=== PATIENT | female | born 1945 | race Caucasian/White ===

== ENCOUNTER → 2023-08-16 11:51 | Outpatient (REF) | payer MEDICARE, OTHER, SELFPAY | LOC: HWRAD 11:51 | PROVIDERS: ATTENDING PHYSICIAN Internal Medicine Rheumatology; FAMILY PHYSICIAN Family Medicine | DX: M81.0 Age-related osteoporosis without current pathological fracture (principal) | CPT/HCPCS: 77080 ==

== ENCOUNTER → 2023-08-23 12:45 | Outpatient (REF) | payer MEDICARE, OTHER, SELFPAY | LOC: HWWDC 12:45 | PROVIDERS: ATTENDING PHYSICIAN Internal Medicine; FAMILY PHYSICIAN Family Medicine; REFERRING PHYSICIAN Obstetrics & Gynecology | DX: Z12.31 Encounter for screening mammogram for malignant neoplasm of breast (principal) | CPT/HCPCS: 77063; 77067 ==

== ENCOUNTER → 2024-02-09 12:20 | Outpatient (REF) | payer MEDICARE, OTHER, SELFPAY | LOC: HWRCS 12:20 | PROVIDERS: ATTENDING PHYSICIAN Nurse Practitioner; FAMILY PHYSICIAN Family Medicine | DX: I25.10 Atherosclerotic heart disease of native coronary artery without angina pectoris (principal); I10 Essential (primary) hypertension; R53.83 Other fatigue | CPT/HCPCS: 93306 ==

== ENCOUNTER → 2024-02-16 11:18 | Outpatient (REF) | payer MEDICARE, OTHER, SELFPAY | LOC: DHCBC/DCA 11:18 | PROVIDERS: ATTENDING PHYSICIAN Nurse Practitioner; FAMILY PHYSICIAN Family Medicine | DX: I25.10 Atherosclerotic heart disease of native coronary artery without angina pectoris (principal); I10 Essential (primary) hypertension; R53.83 Other fatigue | CPT/HCPCS: 78452; 93017; A9500 ==

== ENCOUNTER → 2024-03-23 09:44 | Outpatient (REF) | payer MEDICARE, OTHER, SELFPAY | LOC: RCS 09:44 | PROVIDERS: ATTENDING PHYSICIAN Family Medicine | DX: R00.2 Palpitations (principal) | CPT/HCPCS: 93225; 93226 ==

== ENCOUNTER 2024-09-16 20:23 | Inpatient (IN) | payer MEDICARE, OTHER, SELFPAY ==
[2024-09-16] VITALS (15 sets, daily range): BP systolic 98–163; BP diastolic 68–120; BMI 28.3; BMI 28.5
--- NOTE | 2024-09-16 18:30 | ED.GENMED ---
History of Present Illness
<IGNACIO Tamayo - Last Filed: 09/16/24 20:32>
General
Chief Complaint: Cardiac Symptoms
Source: patient
Exam Limitations: none
Time Seen by Provider: 09/16/24 18:18
Nursing documentation reviewed up to this point in time: agreed with
History of Present Illness
History of Present Illness:
Patient is a 79-year-old female past medical history of A-fib on Eliquis , CAD with stent ,acne rosacea, hypertension hyperlipidemia presents to the ER. She has not felt well for the past several weeks. She has not had increasing shortness of
breath and lower extremity swelling. She reports normally walks 2 and half miles every day but can barely walk yesterday and did not walk today. She went to her PCPs office and was sent here for elevated heart rate. She was recently started on
metoprolol September 03 when she saw her PCP and did take 25 mg this morning. She has never had congestive heart failure lower extremity swelling up until recently. She is on HCTZ and only takes it once a week as her instructions.
Review of Systems
<IGNACIO Tamayo - Last Filed: 09/16/24 20:32>
Review of Systems
Allergies reviewed?: Yes
All Other Systems: ROS reviewed and negative except as documented in HPI and ROS
Constitutional: Reports no symptoms; Denies fever, fatigue or chills
EENT: Reports no symptoms
Respiratory: Reports trouble breathing; Denies cough
Cardiac: Denies chest pain, palpitations or syncope
ABD/GI: Reports no symptoms
: Reports no symptoms
Musculoskeletal: Reports other (Lower extremity swelling)
Hematologic/Lymphatic: Reports no symptoms
Phy Exam
<IGNACIO Tamayo - Last Filed: 09/16/24 20:32>
General Physical Exam
General Presentation: no apparent distress
General age: appears stated age
General Skin: warm and dry
General Habitus: normal
General Mental: alert
General Hydration: appears well hydrated
Cardiovascular Exam
Cardiovascular Exam: irregularly irregular
Pulmonary Exam
Pulmonary Exam: other (crackles at bases b/l )
Neurological Exam
Neurological Exam: alert and oriented x3
Musculoskeletal Exam
Musculoskeletal Exam: other (+ pitting edema to b/l l/e )
Skin Exam
Skin Exam: normal color and warm/dry
Psychiatric Exam
Psychiatric Exam: normal mood/affect
Course
<IGNACIO Tamayo - Last Filed: 09/16/24 20:32>
Orders/Labs/Results
Orders:
Orders
09/16/24 18:02
Electrocardiogram (*1) Urgent
Reason for Study: Palpitations
09/16/24 18:03
EKG- Treatment ONCE
09/16/24 18:37
Diltiazem 125 mg/125 ml Nss [Cardizem] 125 mg in 125 ml IV NOW
Initial dose in mg/hr, then titrate:: 5
Titrate to keep:: Heart rate 80-100 bpm
Titrate by mg/hr:: 5 mg/hr
Frequency of titrations (minutes):: 15
Maximum dose in mg/hr:: 15
Diltiazem HCl [Cardizem] 10 mg IV NOW STA
09/16/24 18:38
Cardiac Monitoring- Treatment ONCE
IV Insert/Care/Rem.- Treatment PRN
Portable Chest Xray [CR Chest Portable - 1 View] Urgent
Comment:
Reason For Exam: sob
Reason Study Needs to be Portable: Patient Unstable
09/16/24 18:40
Furosemide [Lasix] 40 mg IV NOW STA
09/16/24 18:45
Complete Blood Count/With Diff Urgent
Comprehensive Metabolic Panel Urgent
Pro-BNP [NT-proBNP] Urgent
Troponin I Urgent
09/16/24 19:10
Metoprolol [Lopressor] 5 mg IV NOW STA
09/16/24 20:13
Admit/Transfer Patient As Directed
Co-Sign Provider:
Level of Care: Inpatient admission
Assign to:: Telemetry
Physician / Group: germania
Diagnosis: new onset CHF
Reason for Telemetry: Arrhythmia
Date to Stop Telemetry: 09/19/24
Time to Stop Telemetry: 11:00
Reason for Hospitalization: new onset CHF
atrial fib with RVR
Expected length of stay greater than two midnights?: Yes
ELOS- Estimated Length of Stay in days: 3
I certify the patient meets the requirements for IP care: Yes
Code Status As Directed
Resuscitation Status: Do not resuscitate
Reached after discussion with pt or family/Healthcare POA: Yes
PRN Pain Medication Management As Directed
May give lesser potent ordered pain med per pt: Yes
preference::
Protocol:: Medication orders for pain may be administered in a
manner that supports deferring to patient preference
when the pt is:
- Requesting an ordered lesser potent pain medication.
Least to most potent pain medications are defined
as: acetaminophen < NSAID < tramadol < opioids
(morphine, oxycodone, hydromorphone).
- Requesting a lesser dose of the same medication IF
ORDERED.
- Requesting a less intrusive route of administration
if both routes are prescribed by the provider (PO <
IV).
09/16/24 20:14
DNR Bracelet Application ONCE
09/19/24 11:00
DC Protocol for Telemetry ONCE
Abnormal Lab Results
09/16/24
18:45
RBC 3.91 L 10^6/uL
(4.20-5.40)
Hct 35.0 L %
(37.0-47.0)
MPV 10.6 H fL
(7.4-10.4)
Absolute Lymphs (auto) 1.0 L 10^3/uL
(1.2-3.4)
Absolute Monos (auto) 0.7 H 10^3/uL
(0.1-0.6)
Neutrophils % 75.6 H %
(42.2-75.2)
Lymphocytes % 13.7 L %
(20.5-51.1)
Sodium 134 L mmol/L
(135-145)
BUN 18 H mg/dl
(7-17)
Glucose 102 H mg/dl
(70-99)
AST 44 H U/L
(14-36)
ALT 42 H U/L
(0-35)
09/16/24 18:45
09/16/24 18:45
Vital Signs
Initial and Last Documented VS:
Initial Vital Signs
Temp Pulse Resp BP Pulse Ox
97.7 F 165 20 163/109 100
09/16/24 18:10 09/16/24 18:10 09/16/24 18:10 09/16/24 18:10 09/16/24 18:10
Last Documented Vital Signs
Temp Pulse Resp BP Pulse Ox
97.7 F 110 17 104/70 98
09/16/24 18:10 09/16/24 20:00 09/16/24 20:00 09/16/24 20:00 09/16/24 20:00
Hat Steamer consulted with Physician
Hat Steamer consulted with physician?: Yes
Name of Physician Consulted: DR Dyer
<Charanjit Dyer, DO - Last Filed: 09/16/24 19:12>
Orders/Labs/Results
Orders:
Orders
09/16/24 18:02
Electrocardiogram (*1) Urgent
Reason for Study: Palpitations
09/16/24 18:03
EKG- Treatment ONCE
09/16/24 18:37
Diltiazem 125 mg/125 ml Nss [Cardizem] 125 mg in 125 ml IV NOW
Initial dose in mg/hr, then titrate:: 5
Titrate to keep:: Heart rate 80-100 bpm
Titrate by mg/hr:: 5 mg/hr
Frequency of titrations (minutes):: 15
Maximum dose in mg/hr:: 15
Diltiazem HCl [Cardizem] 10 mg IV NOW STA
09/16/24 18:38
Cardiac Monitoring- Treatment ONCE
IV Insert/Care/Rem.- Treatment PRN
Portable Chest Xray [CR Chest Portable - 1 View] Urgent
Comment:
Reason For Exam: sob
Reason Study Needs to be Portable: Patient Unstable
09/16/24 18:40
Furosemide [Lasix] 40 mg IV NOW STA
09/16/24 18:45
Complete Blood Count/With Diff Urgent
Comprehensive Metabolic Panel Urgent
Pro-BNP [NT-proBNP] Urgent
Troponin I Urgent
09/16/24 19:10
Metoprolol [Lopressor] 5 mg IV NOW STA
09/16/24 20:13
Admit/Transfer Patient As Directed
Co-Sign Provider:
Level of Care: Inpatient admission
Assign to:: Telemetry
Physician / Group: germania
Diagnosis: new onset CHF
Reason for Telemetry: Arrhythmia
Date to Stop Telemetry: 09/19/24
Time to Stop Telemetry: 11:00
Reason for Hospitalization: new onset CHF
atrial fib with RVR
Expected length of stay greater than two midnights?: Yes
ELOS- Estimated Length of Stay in days: 3
I certify the patient meets the requirements for IP care: Yes
Code Status As Directed
Resuscitation Status: Do not resuscitate
Reached after discussion with pt or family/Healthcare POA: Yes
PRN Pain Medication Management As Directed
May give lesser potent ordered pain med per pt: Yes
preference::
Protocol:: Medication orders for pain may be administered in a
manner that supports deferring to patient preference
when the pt is:
- Requesting an ordered lesser potent pain medication.
Least to most potent pain medications are defined
as: acetaminophen < NSAID < tramadol < opioids
(morphine, oxycodone, hydromorphone).
- Requesting a lesser dose of the same medication IF
ORDERED.
- Requesting a less intrusive route of administration
if both routes are prescribed by the provider (PO <
IV).
09/16/24 20:14
DNR Bracelet Application ONCE
09/19/24 11:00
DC Protocol for Telemetry ONCE
Abnormal Lab Results
09/16/24
18:45
RBC 3.91 L 10^6/uL
(4.20-5.40)
Hct 35.0 L %
(37.0-47.0)
MPV 10.6 H fL
(7.4-10.4)
Absolute Lymphs (auto) 1.0 L 10^3/uL
(1.2-3.4)
Absolute Monos (auto) 0.7 H 10^3/uL
(0.1-0.6)
Neutrophils % 75.6 H %
(42.2-75.2)
Lymphocytes % 13.7 L %
(20.5-51.1)
Sodium 134 L mmol/L
(135-145)
BUN 18 H mg/dl
(7-17)
Glucose 102 H mg/dl
(70-99)
AST 44 H U/L
(14-36)
ALT 42 H U/L
(0-35)
09/16/24 18:45
09/16/24 18:45
Vital Signs
Initial and Last Documented VS:
Initial Vital Signs
Temp Pulse Resp BP Pulse Ox
97.7 F 165 20 163/109 100
09/16/24 18:10 09/16/24 18:10 09/16/24 18:10 09/16/24 18:10 09/16/24 18:10
Last Documented Vital Signs
Temp Pulse Resp BP Pulse Ox
97.7 F 110 17 104/70 98
09/16/24 18:10 09/16/24 20:00 09/16/24 20:00 09/16/24 20:00 09/16/24 20:00
<IGNACIO Tamayo - Last Filed: 09/16/24 20:32>
MDM/Problems Addressed
Differential Diagnosis Includes:
not limited to:rapid atrial fibrillation, congestive heart failure
MDM/Problems Addressed:
As documented patient is a 79-year-old female with history of A-fib on Eliquis has not missed a dose complains of increasing shortness of breath over the past several weeks associated lower extremity swelling. She presented in rapid A-fib. She had
no chest pain with this. She has obvious pitting edema to bilateral lower extremities crackles bilateral bases however she is not hypoxic. Case discussed ED physician. Patient was started on a Cardizem drip portable chest and labs ordered.
1904: Nurse notified me that patient developed a red rash to bilateral legs and feels a warm sensation in the legs. This reaction occurred after starting Cardizem. She denies any new shortness of breath with this. She has no other areas of
redness.
CArdizem stopped. Dr Manisha armenta pt at beside.
Patient was given 5 mg of metoprolol and heart rate has decreased into the high 90s. Blood pressure running low around 104/70. Patient is in no acute distress she is well-appearing.. She did receive Lasix.
Case discussed with cardiology will admit patient to cardiology will see patient in consult tomorrow.
Labs reviewed she has normal white count and afebrile hemoglobin stable at 12.0. She has normal electrolytes normal renal function. Chest x-ray showed likely small left and tiny right pleural effusions.
Pt admitted to the hospitalist service.
<IGNACIO Tamayo - Last Filed: 09/16/24 20:32>
*Radiology
Radiology exam reviewed: radiology read reviewed
*Pulse Oximetry
Patient hypoxic: no
*EKG
Interpreted by ED Provider?: Yes
Heart Rate: 156
Rate: tachycardiac
Rhythm: a-fib
Ischemia: no ischemia
*Critical Care Note
Total Time (30-74mins, 75-104mins- exclusive of procedures): Not Applicable
<IGNACIO Tamayo - Last Filed: 09/16/24 20:32>
Patient Management
Discussion with other providers: Combustion Analyst (DR Deleon cardiology )
ED Attending Note
<IGNACIO Tamayo - Last Filed: 09/16/24 20:32>
-
Portions of this chart may have been created with voice recognition software.� Occasional wrong word or��sound alike� substitutions may have occurred due to the inherent limitations of voice recognition software.
<Charanjit Dyer DO - Last Filed: 09/16/24 19:12>
ED Attending Note
Patient seen and examined by attending physician: Yes
I performed the substantive portion of visit, reviewed & personally made and approve the management plan that is documented in note by myself or MORALES.: Yes
ED Attending Note:
I evaluated the patient at bedside. The patient was started on Cardizem drip as her rates are in the 150s. Shortly after the drip was started, she developed a rash to the lower extremities which was not present earlier. Will stop Cardizem and
switch to beta-nemesio. She is known to Dr. Menard. I personally reviewed chest x-ray which shows left greater than right pleural effusions.
Discharge Plan
Departure
Patient Disposition: Admit
Date of Disposition: 09/16/24
Time of Disposition: 19:40
Admit to: Telemetry
Admit to doctor: hospitalist
Presentation/result/management discussed w/ accepting MD/DO: Hospitalist
Patient with high blood pressure during this ER visit?: Yes
Condition: Fair
Covid-19: Not Applicable
Discharge Problem:
Atrial fibrillation, rapid, Congestive heart failure (CHF)
Interventions
Interventions:
*Risk Screen - Suicide Last Done: 09/16/24 18:10
*General Assessment Last Done: 09/16/24 18:10
*Neglect/Abuse Screening Last Done: 09/16/24 18:46
*ED- Fall Risk Assessment Last Done: 09/16/24 18:47
*ED COVID-19 Vaccine History Last Done: 09/16/24 18:51
ED- Pulmonary Assessment Last Done: 09/16/24 18:50
ED- Cardiac Assessment Last Done: 09/16/24 18:46
[2024-09-16] MEDS: CARDIZEM 125 IV (18:40)
[2024-09-16] MEDS: CARDIZEM 10 MG IV (18:40)
[2024-09-16 18:53] LABS: % Basophils 0.8 % (0-2); % Eosinophils 0.7 % (0-6); % Immature Granulocytes 0.1 % (0-0.5); % Lymphocytes 13.7 % (20.5-51.1); % Monocytes 9.1 % (1.7-9.3); % Neutrophils 75.6 % (42.2-75.2); Absolute Basophils 0.1 10^3/uL (0-0.2); Absolute Eosinophils 0.1 10^3/uL (0-0.7); Absolute Monocytes 0.7 10^3/uL (0.1-0.6); Absolute Neutrophils 5.6 10^3/uL (1.4-6.5); Mean Corp Hgb Conc. 34.3 g/dL (33.0-37.0); Mean Corpuscular Hgb 30.7 pg (27.0-31.0); Mean Corpuscular Volume 89.5 fL (81.0-99.0); Mean Platelet Volume 10.6 fL (7.4-10.4); Nucleated Red Blood Cells % 0 %; Platelet Count 241 10^3/uL (130-400); Red Blood Cell Count 3.91 10^6/uL (4.20-5.40); Red Cell Dist. Width 12.9 % (11.5-14.5); White Blood Cell Count 7.4 10^3/uL (4.8-10.8)
[2024-09-16 19:06] LABS: ALT (SGPT) 42 U/L (0-35); AST (SGOT) 44 U/L (14-36); Albumin 3.9 g/dl (3.5-5.0); Alkaline Phosphatase 63 U/L (38-126); Blood Urea Nitrogen 18 mg/dl (7-17); Calcium 9.1 mg/dl (8.4-10.2); Carbon Dioxide 26 mmol/L (22-30); Chloride 101 mmol/L (98-107); Estimated Creatinine Clearance 41 ml/min; Glucose 102 mg/dl (70-99); Potassium 4.3 mmol/L (3.5-5.1); Sodium 134 mmol/L (135-145); Total Bilirubin 0.7 mg/dl (0.2-1.3); Total Protein 6.3 g/dl (6.3-8.2); eGFR > 60.00
[2024-09-16 19:17] LABS: NT-proBNP 2180 pg/ml; Troponin I < 0.012 ng/ml
[2024-09-16] MEDS: LOPRESSOR 5 MG IV (19:21)
--- NOTE | 2024-09-16 19:51 | HPS.HSE ---
Addendum entered and electronically signed by Gerson Alcantar DO 09/16/24 20:40:
Patient seen and examined independently. Agree with findings and plan as set forth by IGNACIO Burton.
Patient is a 79y F with PMH significant for A-Fib, ASCVD and rosacea who presents to ED complaining of LE swelling and SOB over the past two weeks. Symptoms have been steadily progressive during that time. Patient notes that she was started on
metoprolol about 2 weeks ago by her PCP. She has experienced palpitations - mostly when lying flat. No chest pain. Not lightheaded / dizzy. Patient reports that she has gained about 10 lbs in the past month. No prior history of CHF.
Ass:
Paroxysmal Atrial Fibrillation with Rapid Ventricular Response
Acute HFpEF
Benign Hypertension
ASCVD
Rosacea
Plan:
Admit for further evaluation and treatment.
Patient developed rash to the lower extremities after diltiazem gtt started - change to Lopressor IV q6.
Monitor for rate control and adjust dose as needed.
Cardiology evaluation for additional recommendations.
Continue usual Eliquis for stroke risk reduction.
Follow for clinical improvement.
Original Note:
Family Physician
-
Family Physician: Alley Sampson
Chief Complaint
-
sob
LE edema
History of Present Illness
79-year-old female past medical history of A-fib on Eliquis , CAD with stent ,acne rosacea, hypertension hyperlipidemia presents to the ER with sob, LE edema. she noticed swelling of Bilateral LE on two weeks ago. it progressively got worse. she
started having sob which is worse with exertion on Monday. denied orthopnea. denied fever, chills, congestion and cough. her PCP added metoprolol two weeks ago. she gained total of 10lbs in one month. denied GARNICA, dizzy or syncope. denied chest
pain. denied abdominal pain,n,v,d. denied dysuria or hematuria. she was evaluated by PCP and noted in atrial fib with RVR. her heart rate was on 160-180s.
upon arrival she was noted in atrial fib with RVR, received a dose Lopressor. her Her HR in 100-110. she was started on Cardizem but developed rash bilateral LE. patient received a dose of Lasix in ER. admitting for further management.
Medical History
Past Medical History
Past Medical History: Reports Other
Additional Past Medical History:
CAD
allergic rhinitis
PAC
paroxysmal atria lfib
osteoporosis
HLD
Past Surgical History: Reports Other
Additional Past Surgical History:
tooth extraction
right knee replacement
bilateral tubal ligation
cataract surgery
squamous cell removal
Social History
Tobacco: Non-smoker
Alcohol: None
Drug: None
Personal: Single
Living: Alone
Family History
Family History: Not pertinent
Allergies / Home Medications
Allergies reflects when Allergies were last updated in [facility].
Home Medications with original date entered in [facility]
Allergy/Medication List:
Allergies
Allergy/AdvReac Type Severity Reaction Status Date / Time
amoxicillin Allergy Unknown Verified 09/16/24 18:41
Penicillins Allergy Unknown Verified 09/16/24 18:41
Review of Systems
-
Constitutional: Reports No Symptoms
EENT: Reports No Symptoms
Respiratory: Reports Trouble Breathing
Cardiac: Reports No Symptoms
Abdomen/GI: Reports No Symptoms
: Reports No Symptoms
Musculoskeletal: Reports Edema (LE edema)
Skin: Reports No Symptoms
Neurological: Reports No Symptoms
Endocrine: Reports No Symptoms
Hematologic/Lymphatic: Reports No Symptoms
Psych: Reports No Symptoms
Physical Exam
Vital Signs
Vital Signs
Temp Pulse Resp BP Pulse Ox
97.7 F 99 18 113/68 98
09/16/24 18:10 09/16/24 19:30 09/16/24 19:30 09/16/24 19:21 09/16/24 19:30
Physical Exam
General: Well Developed, Well Nourished and No Apparent Distress
HEENT: NormoCephalic, Moist mucous membranes and Atraumatic
Respiratory: Crackles
Cardiac: S1/S2 and Regular Rhythm; No Murmur or Rub
GI: Soft, Non Tender, Non Distended and Normal Bowel Sounds; No Organomegaly
Rectal: Deferred by Provider
Musculoskeletal: No Clubbing, No Cyanosis and Other (b/l LE edema)
Skin: No Rash
Neuro: AO x 3 and Nonfocal/grossly intact
Psych: Calm
Laboratory Results
-
09/16/24 18:45
09/16/24 18:45
Laboratory Results
Total Bilirubin 0.7 mg/dl (0.2-1.3) 09/16/24 18:45
AST 44 U/L (14-36) H 09/16/24 18:45
ALT 42 U/L (0-35) H 09/16/24 18:45
Alkaline Phosphatase 63 U/L (38-126) 09/16/24 18:45
Troponin I < 0.012 ng/ml 09/16/24 18:45
Data Reviewed
-
Diagnostic Radiology: Report Reviewed by me
Lab Data: Labs Reviewed by me
Impression/Plan
-
#sob/LE edema likely CHF
-BNP 2180
-chest x ray with Likely small left and tiny right pleural effusion with some bibasilar opacification suggesting subsegmental atelectasis and/or pneumonia.
-ECHO 02/09/2024 with impression of EF 60-65%
-iv Lasix continued
-strict I &O
-daily weight, fluid restriction
-cardiology consulted
#atrial fib with RVR
-Lopressor in ER
-EKg with atrial fib with RVR
-Lopressor IV continued
-eliquis continued
#hxt of Rosacea
-doxy continued
-flagyl cream continued
#hepatic congestion
-ast 44,alt 42
-denied abdominal pain
#CAD with cardiac stents
#HLD
-statin continued
#DVT prophylaxis
-Eliquis
#CODE status
-DNR
[2024-09-16] MEDS: LASIX 40 MG IV (21:05)
--- NOTE | 2024-09-16 23:45 | PTCARENOTE ---
Received patient from ED via stretcher. Patient ambulated from stretcher to bed independently. Oriented patient to room and placed call [facility] within reach.
[2024-09-17] VITALS (8 sets, daily range): BP systolic 119–152; BP diastolic 49–89; BMI 28.5; BMI 28.0; BMI 27.0
[2024-09-17] MEDS: LIPITOR 20 MG PO ×2 (00:03→22:09)
[2024-09-17] MEDS: ZETIA 10 MG PO ×2 (00:03→22:09)
[2024-09-17] MEDS: LOPRESSOR 5 MG IV ×2 (00:04→05:10)
[2024-09-17] MEDS: ELIQUIS 5 MG PO ×3 (00:24→19:55)
[2024-09-17 06:50] LABS: Hematocrit 32.6 % (37.0-47.0); Hemoglobin 11.2 g/dL (12.0-16.0); Mean Corp Hgb Conc. 34.4 g/dL (33.0-37.0); Mean Corpuscular Hgb 30.9 pg (27.0-31.0); Mean Corpuscular Volume 89.8 fL (81.0-99.0); Mean Platelet Volume 11.1 fL (7.4-10.4); Platelet Count 215 10^3/uL (130-400); Red Blood Cell Count 3.63 10^6/uL (4.20-5.40)
[2024-09-17 07:13] LABS: ALT (SGPT) 36 U/L (0-35); AST (SGOT) 36 U/L (14-36); Albumin 3.4 g/dl (3.5-5.0); Alkaline Phosphatase 55 U/L (38-126); Blood Urea Nitrogen 14 mg/dl (7-17); Calcium 8.6 mg/dl (8.4-10.2); Carbon Dioxide 25 mmol/L (22-30); Chloride 104 mmol/L (98-107); Direct Bilirubin 0.2 mg/dl (0.0-0.4); Estimated Creatinine Clearance 42 ml/min; Glucose 87 mg/dl (70-99); HDL Cholesterol 66 mg/dl; LDL Cholesterol, Calculated 26 mg/dl; Potassium 3.7 mmol/L (3.5-5.1); Sodium 138 mmol/L (135-145); Total Bilirubin 0.7 mg/dl (0.2-1.3); Total Cholesterol 105 mg/dl (50-199); Total Protein 5.5 g/dl (6.3-8.2); Triglyceride 68 mg/dl (10-149); Very Low Density Lipoprotein 13 mg/dl (0-30); eGFR > 60.00
[2024-09-17 07:40] LABS: TSH Reflex To Free T4 0.49 uIU/ml (0.47-4.68)
--- NOTE | 2024-09-17 07:44 | CON.CAR ---
Addendum entered and electronically signed by Doug Deleon MD 09/17/24 11:07:
I saw and examined the patient.
The RESIDENT CARE DIRECTOR's note was reviewed and I agree with the note.
Comment: 79 yo with known PAF now with AFib of uncertain duration. Perhaps her first persistent episode. Hard to know if new heart failure precipitated AF with RVR or if the AFib precipitate her heart failure.
AFib: I discussed all treatment options. She would like to proceed to early cardioversion w/o AAD and then proceed to early ablation in the near future.
Heart failure: Control of AFib will help her HF. Still needs diuresis, likely several days. Once in sinus can update echo. Will add GDMT during the hospital stay and provide education.
Original Note:
Consultation
Consultation Request
Date/Time Consultation Requested: 09/16/2024 23:00
Date/Time Consultation Performed: 09/17/2024 07:45
Requesting Provider: IGNACIO Burton
Performing Provider: IGNACIO Ortiz for Dr. Deleon
Reason for Consultation: Atrial fibrillation with RVR
Medical History
-
Chief Complaint: Shortness of breath
History of Present Illness:
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
presented to the emergency department chief complaint of shortness of breath. Approximately 2 weeks ago she started having swelling of her bilateral lower extremities. It progressively got worse. She developed GILLIAM approximately 2 days prior to
arrival. She denies orthopnea and PND. She believes she has gained approximately 10 pounds. She presented in atrial fibrillation with rapid ventricular response with heart rates 150-170 bpm. Her PCP started metoprolol succinate 2 weeks ago. She
was started on a diltiazem drip and developed a rash to her bilateral lower extremities. She was admitted with atrial fibrillation with rapid ventricular response and acute HFpEF. Cardiology was consulted for heart failure and rhythm management.
Past Medical History
Past Medical History: Arrhythmias (Paroxysmal atrial fibrillation [on apixaban], pSVT), CAD (BMS to LAD [2010]), HTN, Hypercholesterolemia and Other (Vasovagal syncope)
Past Surgical History: Orthopedic
Social History
Tobacco: Non-Smoker
Alcohol: None
Drug: None
Personal:
Employment: Retired
Family History
Family History: Sudden (Father in 50s, no autopsy.)
Allergies / Home Medications
Allergy/AdvReac Type Severity Reaction Status Date / Time
amoxicillin Allergy Unknown Verified 09/16/24 18:41
diltiazem [From Cardizem] Allergy Hives Verified 09/16/24 23:28
Penicillins Allergy Unknown Verified 09/16/24 18:41
�Medication �Instructions �Recorded �Confirmed �Type
acetaminophen 650 mg 1,300 mg PO DAILY 09/16/24 09/16/24 History
tablet,extended release (Tylenol
Arthritis Pain)
acetaminophen 650 mg 650 mg PO HS 09/16/24 09/16/24 History
tablet,extended release (Tylenol
Arthritis Pain)
apixaban 5 mg tablet (Eliquis) 5 mg PO BID 09/16/24 09/16/24 History
biotin 5 mg tablet 5 mg PO DAILY 09/16/24 09/16/24 History
calcium 500 mg (as 1 tab PO DAILY 09/16/24 09/16/24 History
carbonate)-vitamin D3 10 mcg (400
unit) tablet (Calcium 500 + D)
chlorzoxazone 500 mg tablet 500 mg PO DAILY 09/16/24 09/16/24 History
cyanocobalamin (vitamin B-12) 1,000 mcg PO DAILY 09/16/24 09/16/24 History
1,000 mcg tablet
denosumab 60 mg/mL subcutaneous 60 mg SC [id number] 09/16/24 09/16/24 History
syringe (Prolia)
doxycycline hyclate 20 mg tablet 20 mg PO Q48H 09/16/24 09/16/24 History
ezetimibe 10 mg tablet 10 mg PO HS 09/16/24 09/16/24 History
hydrochlorothiazide 12.5 mg tablet 12.5 mg PO WE 09/16/24 09/16/24 History
ketoconazole 2 % shampoo 1 applic topical Q48H 09/16/24 09/16/24 History
metoprolol succinate 25 mg 25 mg PO DAILY 09/16/24 09/16/24 History
tablet,extended release 24 hr
metronidazole 0.75 % topical cream 1 applic topical BID face 09/16/24 09/16/24 History
peg 400-propylene glycol (PF) 0.4 1 drp BOTH EYES HS 09/16/24 09/16/24 History
%-0.3 % eye drops in a dropperette
(Systane (PF))
psyllium husk 0.4 gram capsule 2 g PO QPM 09/16/24 09/16/24 History
(Metamucil)
red yeast rice 600 mg capsule 600 mg PO HS 09/16/24 09/16/24 History
simvastatin 40 mg tablet 40 mg PO HS 09/16/24 09/16/24 History
Review of Systems
-
History Source: Patient
All other systems: Negative unless noted
Constitutional: Weight Gain and Fatigue
EENT: No Symptoms
Respiratory: Trouble Breathing
Cardiac: No Symptoms
Abdomen/GI: No Symptoms
: No Symptoms
Musculoskeletal: Edema
Skin: No Symptoms
Neurological: Weakness
Endocrine: No Symptoms
Hematologic/Lymphatic: No Symptoms
Physical Exam
Vital Signs
Temp Pulse Resp BP Pulse Ox
98.9 F 98 20 134/95 98
09/17/24 03:04 09/17/24 05:45 09/17/24 03:04 09/17/24 05:10 09/17/24 03:04
Lab Results
09/17/24 05:55
09/17/24 05:55
Troponin I < 0.012 ng/ml 09/16/24 18:45
Wal-D-Nawyvblopto Pept 2180 pg/ml 09/16/24 18:45
Physical Exam
General: Well Developed, Well Nourished, No Apparent Distress and Comfortable
HEENT: Normocephalic, Anicteric and Moist Mucous Membranes
Respiratory: Clear and Non Labored Respirations
Cardiac: S1/S2 and Irregular Rhythm
Breast: Deferred by me
GI: Soft, Non Tender, Non Distended and Normal Bowel Sounds
Rectal: Deferred by Provider
Genito-urinary: No Costovertebral Tender
Musculoskeletal: No Clubbing, No Cyanosis and Edema (+2 pitting B/L LE)
Skin: Warm and Dry
Neuro: AO x 3
Hematologic/Lymphatic: No Lymphadenopathy
Psych: Calm
Impression / Plan
-
I/P: 79M with coronary artery disease (BMS to LAD, 2010), paroxysmal atrial fibrillation (on apixaban), PSVT, hypertension, dyslipidemia, and vasovagal syncope who presented to the emergency department chief complaint of shortness of breath -> AF
with RVR & acute HFpEF
Outpatient lumber salvager: Dr. Menard
Heart failure, presumed HFpEF - acute (NEW DIAGNOSIS)
-Diuresis with furosemide 40 mg IV twice daily, this requires intensive monitoring
-She was on HCTZ for chronic lower extremity edema once a week, now stopped, she will now be on furosemide likely MWF as an outpatient
-She normally weighs 113-115 pounds on her home scale
-Case management to [facility] SGLT2
-Daily weight, I/O, and BMP with diuresis
-Heart failure education
-Echocardiogram this admission
Paroxysmal atrial fibrillation now with rapid ventricular response
-Rates elevated, increase metoprolol
-Consider antiarrhythmic therapy, she is not sure she would like a 3 night stay for [facility]
-Oral Anticoagulation: Apixaban 5 mg twice daily, she denies missed doses and abnormal bleeding
-[id number]: Score at least 6 (Heart failure, HTN, age 75 or more, Vascular disease, female gender)
Coronary artery disease
-BMS to LAD in 2010, on apixaban for atrial fibrillation
-Stable without chest pain
Hypertension, follow with diuresis
PSVT, continue beta-nemesio
Hypercholesterolemia, continue simvastatin and Zetia, LDL well below goal
Data Reviewed
-
EKG: Report Reviewed by me (Atrial fibrillation with RVR, rate 156)
Radiology: Report Reviewed by me (CXR: Likely small left and tiny right pleural effusion with some bibasilar opacification suggesting subsegmental atelectasis and/or pneumonia.)
[2024-09-17] MEDS: METHOCARBAMOL 500 MG PO (08:00)
[2024-09-17] MEDS: OSCAL 500 + D 500 MG PO (08:00)
[2024-09-17] MEDS: VITAMIN B-12 1000 MCG PO (08:00)
[2024-09-17] MEDS: LASIX 40 MG IV ×2 (08:01→16:19)
[2024-09-17] MEDS: TOPROL XL 25 MG PO ×2 (08:09→19:59)
--- NOTE | 2024-09-17 09:09 | W.PN.HOSP.TC ---
Today's Communication/Plan
-
IV Lasix. Beta-blockers. Cardioversion. Cardiology eval
Assessment / Plan
Assessment / Plan
Physical exam:
General: Well Developed, Well Nourished and No Apparent Distress
HEENT: Normocephalic, Atraumatic and Moist Mucous Membranes
Respiratory: Few crackles in the bases; Negative Wheezes or Rhonchi
Cardiac: Irregular rate and rhythm, tachycardic, and S1/S2. JVD+
GI: Soft, Nontender and Nondistended
Musculoskeletal: No Clubbing, No Cyanosis. Bilateral lower extremity edema 3+
Neuro: Awake, Alert and Oriented, no neurological deficit
Psych: Calm
A/P:
Paroxysmal atrial fibrillation:
Electrical cardioversion today
Cardiac monitoring
Will need ablation in the near future
Appreciated cardiology consult
Acute diastolic congestive heart failure:
Continue IV diuresis, Lasix 40 mg twice a day
GDMT will be reevaluated down the road--> start beta-blockers of Toprol-XL.
Monitor ins and outs and daily weight
Plan for echo
CAD:
Continue Eliquis and Zetia and statin
Rosacea:
Continue metronidazole cream and oral Doxy
Hypertension:
Beta-blockers
Hyperlipidemia:
Statin
Elevated LFTs:
Due to passive venous congestion
DVT prophylaxis:
Eliquis
CODE STATUS:
DNR
Total time spent on today's encounter was 52 minutes which included time spent in counseling the patient/family regarding diagnosis and treatment plan as listed above, goals of care, and symptom management. Case was discussed with nursing staff,
specialists, and care coordinators/case management. All labs and imaging personally reviewed by me. Remainder the time spent in detailed review of previous records, lab data, imaging, and other medical provider documentation.
Anticipated Discharge: > 48 hours
Subjective/Interval History
-
Date of Service: September 17, 2024
Patient still with some shortness of breath and lower extremity edema. No chest pain.
Objective Data
-
Labs:
Laboratory Results
09/17/24
05:55
WBC 5.0
Hgb 11.2 L
Hct 32.6 L
Plt Count 215
Sodium 138
Potassium 3.7
Chloride 104
Carbon Dioxide 25
BUN 14
Creatinine 0.7
Glucose 87
Calcium 8.6
Total Bilirubin 0.7
AST 36
ALT 36 H
Alkaline Phosphatase 55
Vital Signs:
Vital Signs
Temp Pulse Resp BP Pulse Ox
98.1 F 160 20 120/84 100
09/17/24 07:43 09/17/24 08:01 09/17/24 07:43 09/17/24 08:01 09/17/24 07:43
I&O
09/16/24 09/17/24 09/18/24
06:59 06:59 06:59
Intake Total 240 / 240
Output Total 1000 / 1000
Balance -760 / -760
--- NOTE | 2024-09-17 10:39 | CM ---
Addendum entered by Rakel Mancia 09/17/24 15:28:
IA completed.
Patient recently (July)
Patient lives alone in a 2 story home with 1st floor living.
1 step to enter.
Patient has a rolling walker, but does not use.
Patient drives and drove to the hospital.
Patient is not current with VN an has not been in a skilled facility.
Open to [facility] if needed.
Per patient Eliquis is very expensive for her and costs over $400 for a 90 day supply.
PCP; dr Sampson
Pharmacy: [facility] [place]
Plan: home with no needs anticipated.
Addendum entered by Rakel Mancia 09/17/24 15:24:
Spoke with [facility] mail-in pharmacy (90 day supply) [phone]
Jardiance 10 mg will be $338.76 for a 90 day supply and Farxiga $322.77 for a 90 anatoliy supply.
Patient has $1115 of $2000 yearly OOP left to spend, then covered at 100%.
Original Note:
TC to insurance patient stated prescription coverage was thru- HOP- no rx coverage.
TC to [facility] pharmacy, spoke with tech, patient has medicare part D
Farxiga 10 mg po 1 x per day for 30 days $115.85 per month
Jardiance 10 mg po 1x per day for 30 days $121.59 per month
Per pharmacy these are estimates.
--- NOTE | 2024-09-17 11:33 | ITS.CL.CARDI ---
[facility] - Cardioversion
Cardioversion
Procedure Report:
Date of Procedure: September 17 2024
Procedure: Cardioversion
Indication: Symptomatic atrial fibrillation
Performing Physician: Farhan Rivera DO. [facility]
Technique: The patient was brought to the holding area. Signed informed consent was obtained. A time out was called and performed. The patient was anesthetized by the anesthesia service. Anticoagulation status was reviewed and appropriate. R2 pads
were placed anteriorly and posteriorly. A 200 J synchronized biphasic shock was performed which failed to restore sinus rhythm. Subsequently a 300 J synchronized biphasic shock was performed which failed to restore sinus rhythm. She then had 360 J
synchronized biphasic shock which was successful in converting to normal sinus rhythm without significant bradycardia. There were no complications.
Conclusion: Uncomplicated cardioversion from atrial fibrillation to sinus rhythm.
Recommendation: Routine post cardioversion care. Continue senior living anticoagulation. Discussed with primary cardiology team.
--- NOTE | 2024-09-17 17:21 | W.CARD.TIKOS ---
Initiate Tikosyn
-
I verify that the patient has not taken any verapamil (Isoptin/Calan), ketoconazole (Nizoral), cimetidine (Tagamet), trimethoprim (Trimpex), trimethoprim/sulfamethoxazole (Bactrim), megesterol (Megace), prochlorperazine (Compazine),
hydrochlorothiazide (HCTZ), dolutegravir (Tivicay) or any Class I or Class III anti-arrhythmic within the last three days
AND
I verify that the patient has not taken amiodarone within the last THREE months, or that the patient's amiodarone plasma concentration is <0.3 mcg/mL.
Creatinine 0.7 mg/dL (0.6-1.0) 09/17/24 05:55
Estimated Creat Clear 42 ml/min 09/17/24 05:55
I have assessed the baseline QTc interval (using QT for heart rate less than 60 bpm) and deemed the patient is appropriate for Dofetilide therapy. I understand that Tikosyn is contraindicated if the QTc is >440msec (500msec in patients with
ventricular conduction abnormalities).
Baseline QTc (in msec): 420
Ordering Physician: Doug Deleon
--- NOTE | 2024-09-17 17:22 | W.PN.UPDATE ---
Update Note
Progress Note Update
Patient is back in atrial fibrillation.
We discussed rhythm management. She is agreeable to dofetilide loading this hospitalization.
Will transfer to IVU and start dofetilide this evening.
--- NOTE | 2024-09-17 18:09 | PTCARENOTE ---
Received patient this am AAOX3. Pt HRRI and sustaining in 130-[address] Deleon made aware. Cardiology RADIO ADJUSTER saw patient. Pt given Toprol PO as ordered. Report given to cardiac radiographer cardiac catheterization. Pt went for a cardioversion. 12:50 Pt returned to unit.
AAOx3. Pt in NSR on Tele. VSS. Pt then started to go in an out of A fib an NSR. Pt off unit this evening for Echo. Received order for patient to be transferred to IVU for a Tikosyn Load. Report called an patient transferred to IVU.
--- NOTE | 2024-09-17 18:57 | PTCARENOTE ---
~0947-2021: Received patient transferred from needing tikosyn load. Pt Aox4, Afib on tele rate 90s-110s, satting high 90s on RA. Weight optained at transfer. Patient denies pain at this time. Patient oriented to room and call ventura system. All
needs met at this time, call ventura within reach.
[2024-09-17] MEDS: TIKOSYN 250 MCG PO (19:59)
--- NOTE | 2024-09-17 21:29 | PTCARENOTE ---
Patient received at change of shift resting in the bed. Offers no complaints at this time. Afib on telemetry. Oxygen saturation 97-98%. First dose of Tikosyn given. Discussed with patient purpose of Tikosyn and reasoning for ECG two hours post
administration. Discussed fluid restriction. Plan of care discussed. Call ventura within reach. Care ongoing.
[2024-09-17] MEDS: REFRESH EYE DROPS (PF) 1 DROPS BOTH EYES (22:09)
[2024-09-18] VITALS (8 sets, daily range): BP systolic 105–151; BP diastolic 53–77; BMI 26.5
[2024-09-18 04:27] LABS: Hematocrit 33.9 % (37.0-47.0); Hemoglobin 11.3 g/dL (12.0-16.0); Mean Corp Hgb Conc. 33.3 g/dL (33.0-37.0); Mean Corpuscular Hgb 29.6 pg (27.0-31.0); Mean Corpuscular Volume 88.7 fL (81.0-99.0); Mean Platelet Volume 10.9 fL (7.4-10.4); Platelet Count 243 10^3/uL (130-400); Red Blood Cell Count 3.82 10^6/uL (4.20-5.40); Red Cell Dist. Width 12.9 % (11.5-14.5); White Blood Cell Count 7.8 10^3/uL (4.8-10.8)
[2024-09-18 04:47] LABS: Blood Urea Nitrogen 22 mg/dl (7-17); Calcium 8.8 mg/dl (8.4-10.2); Carbon Dioxide 30 mmol/L (22-30); Chloride 101 mmol/L (98-107); Estimated Creatinine Clearance 32 ml/min; Glucose 84 mg/dl (70-99); Magnesium 1.7 mg/dl (1.6-2.3); Potassium 3.4 mmol/L (3.5-5.1); Sodium 138 mmol/L (135-145); eGFR > 60.00
--- NOTE | 2024-09-18 07:53 | W.PN.CD ---
Today's Communication / Plan
-
- Continue loading with Tikosyn so far dose # 1/5 on 09/17/24
Impression / Plan
-
I/P: 79M with coronary artery disease (BMS to LAD, 2010), paroxysmal atrial fibrillation (on apixaban), PSVT, hypertension, dyslipidemia, and vasovagal syncope who presented to the emergency department chief complaint of shortness of breath -> AF
with RVR & acute HFpEF
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
Heart failure, presumed HFpEF - acute (NEW DIAGNOSIS)
-Diuresis with furosemide 40 mg IV twice daily, this requires intensive monitoring
-She was on HCTZ for chronic lower extremity edema once a week, now stopped, she will now be on furosemide likely MWF as an outpatient
-She normally weighs 113-115 pounds on her home scale
-Case management to [facility] SGLT2
-Daily weight, I/O, and BMP with diuresis
-Heart failure education
-Echocardiogram 02/09/24 - LVEf 60%. this admission
Persistent atrial fibrillation now with rapid ventricular response
-s/p DCCV 09/17 with recurrence of AF almost immediately.
-Tikosyn load started - first dose on 09/17/24- 250 mcg q12. Converted to sinus with first dose
-Overnight NSVT noted. QTc is acceptable.
-Continue Tikosyn loading.
-Observe for NSVT. If NSVT increased in intensity or frequency, Tikosyn may not be a good choice for her.
-Oral Anticoagulation: Apixaban 5 mg twice daily, she denies missed doses and abnormal bleeding
-[id number]: Score at least 6 (Heart failure, HTN, age 75 or more, Vascular disease, female gender)
Coronary artery disease
-BMS to LAD in 2010, on apixaban for atrial fibrillation
-Stable without chest pain
Hypertension, follow with diuresis
PSVT, continue beta-nemesio
Hypercholesterolemia, continue simvastatin and Zetia, LDL well below goal
Physical Exam
Vital Signs/Labs
Vital Signs
Temp Pulse Resp BP Pulse Ox
98.7 F 75 18 151/77 93
09/18/24 07:32 09/18/24 07:32 09/18/24 07:32 09/18/24 07:32 09/18/24 07:32
09/17/24 09/18/24 09/19/24
06:59 06:59 06:59
Actual Weight 52.645 kg 49.9 kg
09/18/24 03:09
09/18/24 03:09
Magnesium 1.7 mg/dl (1.6-2.3) 09/18/24 03:09
Triglycerides 68 mg/dl (10-149) 09/17/24 05:55
LDL Cholesterol, Calc 26 mg/dl 09/17/24 05:55
VLDL Cholesterol, Calc 13 mg/dl (0-30) 09/17/24 05:55
HDL Cholesterol 66 mg/dl 09/17/24 05:55
09/16/24
18:45
Gad-Z-Ocrbbfqgdlv Pept 2180
LAB Results
09/16/24
18:45
Troponin I < 0.012
Physical Exam
Constitutional: No acute distress and Comfortable
EENT: Anicteric and Moist mucous membranes
Cardiovascular: Rhythm & rate is regular, Pedal edema is absent and JVD pressure is normal
Respiratory: Respiratory effort normal, Lungs clear to auscul. and Wheeze Absent
GI: Soft, Non tender and Normal bowel sounds
Neuro/Psych: Alert, Oriented and AO x 3
Data Reviewed
-
Date of Service: September 18, 2024
Medical Decision Making: Reviewed Test Results, Test Interpretation and Review of Case with other Provider
EKG: Tracing Personally Visualized and interpreted (bsr this AM with SVT and NSVT)
Echo: Report Reviewed by me
Labs: Labs Reviewed by me
Old Records: Reviewed
[2024-09-18] MEDS: OSCAL 500 + D 500 MG PO (08:18)
[2024-09-18] MEDS: TIKOSYN 250 MCG PO (08:18)
[2024-09-18] MEDS: ELIQUIS 5 MG PO ×2 (08:19→20:04)
[2024-09-18] MEDS: TOPROL XL 25 MG PO ×2 (08:19→20:05)
[2024-09-18] MEDS: VITAMIN B-12 1000 MCG PO (08:19)
[2024-09-18] MEDS: METHOCARBAMOL 500 MG PO (08:19)
[2024-09-18] MEDS: LASIX 40 MG IV ×2 (08:20→15:28)
--- NOTE | 2024-09-18 08:57 | W.PN.HOSP.TC ---
Addendum entered and electronically signed by Pablo Escamilla MD 09/18/24 13:58:
Pneumonia was ruled out
Original Note:
Today's Communication/Plan
-
Antiarrhythmics. Cardiac monitoring.
Assessment / Plan
Assessment / Plan
Physical exam:
General: Well Developed, Well Nourished and No Apparent Distress
HEENT: Normocephalic, Atraumatic and Moist Mucous Membranes
Respiratory: Few crackles in the bases; Negative Wheezes or Rhonchi
Cardiac: Irregular rate and rhythm, tachycardic, and S1/S2. JVD+
GI: Soft, Nontender and Nondistended
Musculoskeletal: No Clubbing, No Cyanosis. Bilateral lower extremity edema 2+
Neuro: Awake, Alert and Oriented, no neurological deficit
Psych: Calm
A/P:
Paroxysmal atrial fibrillation:
Electrical cardioversion today--> unsuccessful yesterday and started on Tikosyn and transferred to IVU--> might not be able to tolerate Tikosyn either we will wait for cardiology and or EP recommendations.
Cardiac monitoring
Will need ablation in the near future
Appreciated cardiology consult
Acute diastolic congestive heart failure:
Continue IV diuresis, Lasix 40 mg twice a day
GDMT will be reevaluated down the road--> start beta-blockers of Toprol-XL.
Monitor ins and outs and daily weight
Plan for echo
Constipation:
Start bowel regimen
CAD:
Continue Eliquis and Zetia and statin
Rosacea:
Continue metronidazole cream and oral Doxy
Hypertension:
Beta-blockers
Hyperlipidemia:
Statin
Elevated LFTs:
Due to passive venous congestion
DVT prophylaxis:
Eliquis
CODE STATUS:
DNR
Total time spent on today's encounter was 52 minutes which included time spent in counseling the patient/family regarding diagnosis and treatment plan as listed above, goals of care, and symptom management. Case was discussed with nursing staff,
specialists, and care coordinators/case management. All labs and imaging personally reviewed by me. Remainder the time spent in detailed review of previous records, lab data, imaging, and other medical provider documentation.
Anticipated Discharge: > 48 hours
Subjective/Interval History
-
Date of Service: September 18, 2024
Patient having NSVT. Some chest discomfort and palpitations at times. Still short of breath.
Objective Data
-
Labs:
Laboratory Results
09/18/24
03:09
WBC 7.8
Hgb 11.3 L
Hct 33.9 L
Plt Count 243
Sodium 138
Potassium 3.4 L
Chloride 101
Carbon Dioxide 30
BUN 22 H
Creatinine 0.9
Glucose 84
Calcium 8.8
Vital Signs:
Vital Signs
Temp Pulse Resp BP Pulse Ox
98.7 F 72 18 151/77 93
09/18/24 07:32 09/18/24 08:19 09/18/24 07:32 09/18/24 08:19 09/18/24 07:32
I&O
09/17/24 09/18/24 09/19/24
06:59 06:59 06:59
Intake Total 240 / 240 540 / 540
Output Total 1000 / 1000 2625 / 2625
Balance -760 / -760 -2084 / -2084
--- NOTE | 2024-09-18 10:51 | PN.CDI ---
CDI
- -
CDI:
Physician Documentation Request
Admit Date: 09/16/24 20:23
Dear Doctor Francine,
Please review the following and provide your response in the progress notes.
Clinical Indicators:
The diagnosis of pneumonia was documented on 09/16 H&P but is not consistently noted in subsequent documentation.
- 09/16 H&P 'chest x ray with ... some bibasilar opacification suggesting subsegmental atelectasis and/or pneumonia'
- No additional abx ordered
Please clarify the following:
____ - Pneumonia was present on admission and is now resolved.
____ - Pneumonia was present on admission and is still being monitored, evaluated or treated
____ - Pneumonia was ruled out
____ - Pneumonia is still a likely, suspected, probable diagnosis
____ - Other
Use of terms such as suspected, likely, concern for, or probable (associated with a specific diagnosis that is being evaluated, monitored, or treated as if it exists) are acceptable and can be coded in the inpatient setting, when documented at the
time of discharge.
Thank you,
Onelia Diaz RN
CDI Specialist
Please use your independent medical judgment in providing your response.
--- NOTE | 2024-09-18 11:00 | PTCARENOTE ---
Pt is AOx3, no complaints of pain or discomfort. Pt is independent OOB. #2 tikosyn dose given this AM, received orders from Dr Forman to stop for QTc. Pt updated on plan. Call ventura within reach.
--- NOTE | 2024-09-18 13:14 | CM ---
Chart reviewed. Patient is independent of ADLS, lives alone in a 2 [address], 1 WILLIAM, 0 DME. Patient's pharmacy will need to be called before discharge to confirm Dofetilide availability and dosage. Patient will need a 3 day supply at discharge.
Patient will have a $10 copay. Plan is for the patient to return home when medically stable for discharge. CM to follow
[2024-09-18] MEDS: COLACE 100 MG PO ×2 (14:52→20:04)
[2024-09-18] MEDS: TYLENOL 650 MG PO ×2 (15:28→22:57)
[2024-09-18] MEDS: MIRALAX PO (18:54)
[2024-09-18] MEDS: SENOKOT 8.6 MG PO (20:05)
--- NOTE | 2024-09-18 21:14 | PTCARENOTE ---
Patient received at change of shift out of bed to the chair. Patient states her only complaint is feeling fatigued, states she slept most of the day. Sinus rhythm on telemetry with PACs and PVCs. Oxygen saturation 96% on room air. Plan of care
discussed with patient. Call ventura within reach. Care ongoing.
[2024-09-18] MEDS: REFRESH EYE DROPS (PF) 1 DROPS BOTH EYES (22:51)
[2024-09-18] MEDS: ZETIA 10 MG PO (22:51)
[2024-09-18] MEDS: LIPITOR 20 MG PO (22:52)
[2024-09-19] VITALS (30 sets, daily range): BP systolic 72–172; BP diastolic 48–117; BMI 25.9
[2024-09-19 03:57] LABS: Hemoglobin 12.4 g/dL (12.0-16.0); Mean Corp Hgb Conc. 34.4 g/dL (33.0-37.0); Mean Corpuscular Hgb 30.2 pg (27.0-31.0); Mean Corpuscular Volume 87.6 fL (81.0-99.0); Mean Platelet Volume 10.5 fL (7.4-10.4); Platelet Count 235 10^3/uL (130-400); Red Blood Cell Count 4.11 10^6/uL (4.20-5.40); Red Cell Dist. Width 12.8 % (11.5-14.5); White Blood Cell Count 8.2 10^3/uL (4.8-10.8)
[2024-09-19 04:34] LABS: Blood Urea Nitrogen 18 mg/dl (7-17); Calcium 8.9 mg/dl (8.4-10.2); Carbon Dioxide 32 mmol/L (22-30); Chloride 97 mmol/L (98-107); Estimated Creatinine Clearance 35 ml/min; Glucose 89 mg/dl (70-99); Potassium 3.4 mmol/L (3.5-5.1); Sodium 137 mmol/L (135-145); eGFR > 60.00
--- NOTE | 2024-09-19 07:31 | PN.CDI ---
CDI
- -
CDI:
Physician Documentation Request
Admit Date: 09/16/24 20:23
Dear Doctor Francine,
Please review the following and provide your response in the progress notes.
Clinical Indicators:
- 09/18 Cardiology 'Persistent atrial fibrillation now'
- 's/p DCCV 09/17 with recurrence of AF almost immediately...Tikosyn load started'
- 09/18 PN 'Paroxysmal atrial fibrillation'
- 'Electrical cardioversion today--> unsuccessful yesterday and started on Tikosyn and transferred to IVU'
If possible, please provide further specificity regarding atrial fibrillation, such as:
Paroxysmal atrial fibrillation - terminates spontaneously or with intervention within 7 days of onset
Persistent atrial fibrillation - episodes of continuous AF that last more than 7 days and do not self-terminate
Permanent atrial fibrillation - when a decision has been made to accept the presence of AF and there is no further attempt to restore or maintain sinus rhythm
Other - please specify
Use of terms such as suspected, likely, concern for, or probable (associated with a specific diagnosis that is being evaluated, monitored, or treated as if it exists) are acceptable and can be coded in the inpatient setting, when documented at the
time of discharge.
Thank you,
Onelia Diaz RN
CDI Specialist
Please use your independent medical judgment in providing your response.
[2024-09-19] MEDS: KCL 40 MEQ PO (07:37)
[2024-09-19] MEDS: TOPROL XL 25 MG PO ×2 (07:38→19:39)
[2024-09-19] MEDS: LANOXIN 250 MCG IV (07:38)
[2024-09-19] MEDS: MAGNESIUM SULFATE 50 IV (07:42)
--- NOTE | 2024-09-19 07:43 | W.PN.CD ---
Today's Communication / Plan
-
- Replace K and Mg
- Rate control with Digoxin
- Start low dose Amiodarone 200 mg PO BID today
Impression / Plan
-
I/P: 79M with coronary artery disease (BMS to LAD, 2010), paroxysmal atrial fibrillation (on apixaban), PSVT, hypertension, dyslipidemia, and vasovagal syncope who presented to the emergency department chief complaint of shortness of breath -> AF
with RVR & acute HFpEF
Outpatient bead wrapper: Dr. Menard
Persistent atrial fibrillation now with rapid ventricular response
-s/p DCCV 09/17 with recurrence of AF almost immediately.
-Tikosyn- first dose on 09/17/24- 250 mcg q12. Converted to sinus with first dose. QTc became 540 msec with second dose along with NSVT - Tikosyn discontinued
-Went into AF with RVR this AM
-Replace K and Mg due to hypokalemia and hypomagnesemia
-Rate control with Digoxin. BP is borderline- already failed BB and Tikosyn
-Plan to start Amiodarone in 1 days once Tikosyn is out of system. Now with RVR is noted, can start Amiodarone today after digoxin IV is give x1.
-Oral Anticoagulation: Apixaban 5 mg twice daily, she denies missed doses and abnormal bleeding
-[id number]: Score at least 6 (Heart failure, HTN, age 75 or more, Vascular disease, female gender)
Heart failure, presumed HFpEF - acute (NEW DIAGNOSIS)
-Diuresis with furosemide 40 mg IV twice daily, this requires intensive monitoring
-She was on HCTZ for chronic lower extremity edema once a week, now stopped, she will now be on furosemide likely MWF as an outpatient
-She normally weighs 113-115 pounds on her home scale
-Case management to [facility] SGLT2
-Daily weight, I/O, and BMP with diuresis
-Heart failure education
-Echocardiogram 02/09/24 - LVEf 60%. this admission
Coronary artery disease
-BMS to LAD in 2010, on apixaban for atrial fibrillation
-Stable without chest pain
Hypertension, follow with diuresis
PSVT, continue beta-nemesio
Hypercholesterolemia, continue simvastatin and Zetia, LDL well below goal
Physical Exam
Vital Signs/Labs
Vital Signs
Temp Pulse Resp BP Pulse Ox
97.8 F 145 14 128/96 97
09/19/24 03:19 09/19/24 07:38 09/19/24 03:19 09/19/24 07:38 09/19/24 07:15
09/18/24 09/19/24 09/20/24
06:59 06:59 06:59
Actual Weight 49.9 kg 48.6 kg
09/19/24 03:28
09/19/24 03:28
Magnesium 1.7 mg/dl (1.6-2.3) 09/18/24 03:09
Triglycerides 68 mg/dl (10-149) 09/17/24 05:55
LDL Cholesterol, Calc 26 mg/dl 09/17/24 05:55
VLDL Cholesterol, Calc 13 mg/dl (0-30) 09/17/24 05:55
HDL Cholesterol 66 mg/dl 09/17/24 05:55
09/16/24
18:45
Qqu-Z-Econxqydkvk Pept 2180
LAB Results
09/16/24
18:45
Troponin I < 0.012
Physical Exam
Constitutional: No acute distress and Comfortable
EENT: Anicteric and Moist mucous membranes
Cardiovascular: JVD pressure is normal, Systolic murmur absent, Rhythm/rate is irregular and Systolic murmur present
Respiratory: Respiratory effort normal, Lungs clear to auscul. and Wheeze Absent
GI: Soft, Non tender and Normal bowel sounds
Neuro/Psych: Alert, Oriented, AO x 3 and Motor deficits absent
Data Reviewed
-
Date of Service: September 19, 2024
Medical Decision Making: Reviewed Test Results, Test Interpretation and Review of Case with other Provider
EKG: Tracing Personally Visualized and interpreted
Echo: Report Reviewed by me
Labs: Labs Reviewed by me
Old Records: Reviewed
Critical Care Time (in minutes): 35
--- NOTE | 2024-09-19 08:20 | PTCARENOTE ---
Around 0700 the patient's telemetry was noted to be alarming for HR >140s. HR was ranging from 140-170s Telemetry appeared to show a rapid Afib. The patient was noted to be OOB reaching up to a shelf to get her bag. The patient was assisted back to
the bed. She endorsed palpitations and left sided chest pain. An ECG was done which demonstrated rapid afib. [facility] physician Dr. Menard was notified. Dr. Forman came to the bedside to evaluate the patient. Orders were given for potassium 40mEq PO,
Digoxin 250mcg IV, and Magnesium 2G IV. Scheduled PO Metoprolol was also given. See AUG. BPs 113/89, 128/96. Oxygen saturation 96-97% on room air. Plan of care ongoing.
[2024-09-19] MEDS: COLACE 100 MG PO ×2 (08:45→19:39)
[2024-09-19] MEDS: METHOCARBAMOL 500 MG PO (08:45)
[2024-09-19] MEDS: MIRALAX 17 GRAMS PO (08:45)
[2024-09-19] MEDS: LASIX 40 MG IV ×2 (08:45→15:28)
[2024-09-19] MEDS: VITAMIN B-12 1000 MCG PO (08:46)
[2024-09-19] MEDS: ELIQUIS 5 MG PO ×2 (08:46→19:39)
[2024-09-19] MEDS: SENOKOT 8.6 MG PO ×2 (08:46→19:39)
[2024-09-19] MEDS: OSCAL 500 + D 500 MG PO (08:46)
[2024-09-19] MEDS: CARDIZEM 125 IV (08:48)
--- NOTE | 2024-09-19 09:21 | W.PN.HOSP.TC ---
Addendum entered and electronically signed by Pablo Escamilla MD 09/19/24 15:06:
Persistent atrial fibrillation
Original Note:
Today's Communication/Plan
-
Cardizem drip
Assessment / Plan
Assessment / Plan
Physical exam:
General: Well Developed, Well Nourished and No Apparent Distress
HEENT: Normocephalic, Atraumatic and Moist Mucous Membranes
Respiratory: Few crackles in the bases; Negative Wheezes or Rhonchi
Cardiac: Irregular rate and rhythm, tachycardic, and S1/S2. JVD+
GI: Soft, Nontender and Nondistended
Musculoskeletal: No Clubbing, No Cyanosis. Bilateral lower extremity edema 2+
Neuro: Awake, Alert and Oriented, no neurological deficit
Psych: Calm
A/P:
Paroxysmal atrial fibrillation:
Electrical cardioversion on 08/20 unsuccessful-->started on Tikosyn but failed too--> started amiodarone now for antiarrhythmic and digoxin for rate control
On metoprolol succinate 25 mg twice a day
Started on IV Cardizem drip temporarily today
Cardiac monitoring
Will need ablation in the near future
Appreciated cardiology consult and follow up
Acute diastolic congestive heart failure:
Continue IV diuresis, Lasix 40 mg twice a day
GDMT will be reevaluated down the road--> start beta-blockers of Toprol-XL.
Monitor ins and outs and daily weight
Plan for echo
Hypokalemia:
Replete and trend
Hypomagnesemia:
Replete and trend
Constipation:
Start bowel regimen
CAD:
Continue Eliquis and Zetia and statin
Rosacea:
Continue metronidazole cream and oral Doxy
Hypertension:
Beta-blockers
Hyperlipidemia:
Statin
Elevated LFTs:
Due to passive venous congestion
DVT prophylaxis:
Eliquis
CODE STATUS:
DNR
Total time spent on today's encounter was 52 minutes which included time spent in counseling the patient/family regarding diagnosis and treatment plan as listed above, goals of care, and symptom management. Case was discussed with nursing staff,
specialists, and care coordinators/case management. All labs and imaging personally reviewed by me. Remainder the time spent in detailed review of previous records, lab data, imaging, and other medical provider documentation.
Anticipated Discharge: > 48 hours
Subjective/Interval History
-
Date of Service: September 19, 2024
Patient in A-fib RVR. Complains of chest discomfort on left side. Still short of breath.
Objective Data
-
Labs:
Laboratory Results
09/19/24
03:28
WBC 8.2
Hgb 12.4
Hct 36.0 L
Plt Count 235
Sodium 137
Potassium 3.4 L
Chloride 97 L
Carbon Dioxide 32 H
BUN 18 H
Creatinine 0.8
Glucose 89
Calcium 8.9
Vital Signs:
Vital Signs
Temp Pulse Resp BP Pulse Ox
98.3 F 146 16 130/76 96
09/19/24 08:28 09/19/24 08:45 09/19/24 08:28 09/19/24 08:45 09/19/24 08:28
I&O
09/18/24 09/19/24 09/20/24
06:59 06:59 06:59
Intake Total 540 / 540 720 / 720
Output Total 2625 / 2625 2650 / 2650 200 / 200
Balance -2084 / -2084 -1930 / -1930 -200 / -200
[2024-09-19] MEDS: TYLENOL 650 MG PO ×2 (11:17→19:39)
--- NOTE | 2024-09-19 11:30 | PTCARENOTE ---
received patient this am in a rapid Afib, Dr. Forman ordered IV Cardizem gtt. , Knows that patient has an allergy to Cardizem, rash was on legs, will start IV Cardizem @ 10cc/hr without difficulties. no rash present.monitor shows Afib HR 111,
still c/o pain in neck and left shoulder, Tylenol po given as ordered.
--- NOTE | 2024-09-19 12:13 | CM ---
Chart reviewed. Patient did not tolerate Dofetilide. Patient is independent of ADLS, lives alone in a 2 [address], 1 WILLIAM, 0 DME. Plan is for the patient to return home. CM to follow
--- NOTE | 2024-09-19 14:10 | PTCARENOTE ---
BP 74/p, turned IV Cardizem drip off, TT Dr. Duval, giving 500cc of IV NSS. BP 92/p. HR 111. Nilda MONTOYA and Dr. Duval at bedside.
--- NOTE | 2024-09-19 15:12 | PTCARENOTE ---
po amiodarone started as ordered.
[2024-09-19] MEDS: PACERONE 200 MG PO (15:27)
[2024-09-19] MEDS: FLUSH (NSS) 1 FLUSH IV (15:28)
--- NOTE | 2024-09-19 18:09 | PTCARENOTE ---
patient HR varies, high of 140's with any activity, remains in Afib. patient states that she is tired. patient is diuresing well from Lasix, up and down on BSC frequently.
[2024-09-19] MEDS: LOPRESSOR 2.5 MG IV ×2 (21:43→23:54)
[2024-09-19] MEDS: ZETIA 10 MG PO (21:44)
[2024-09-19] MEDS: LIPITOR 20 MG PO (21:44)
[2024-09-19] MEDS: REFRESH EYE DROPS (PF) 1 DROPS BOTH EYES (21:44)
[2024-09-19 22:04] LABS: Blood Urea Nitrogen 27 mg/dl (7-17); Calcium 8.8 mg/dl (8.4-10.2); Carbon Dioxide 30 mmol/L (22-30); Chloride 95 mmol/L (98-107); Estimated Creatinine Clearance 31 ml/min; Glucose 141 mg/dl (70-99); Magnesium 1.9 mg/dl (1.6-2.3); Potassium 3.8 mmol/L (3.5-5.1); Sodium 132 mmol/L (135-145); eGFR > 60.00
[2024-09-20] VITALS (12 sets, daily range): BP systolic 91–125; BP diastolic 71–106; BMI 25.3
--- NOTE | 2024-09-20 01:37 | PTCARENOTE ---
Pt. rec'd in A-fib, rate 120's-160's, at change of shift. Pt. denied any CP/SOB, just stated that she was tired. Dose Toprol given at 1939, HR still maintaining 110's-160's 2 hours later, hospitalist IGNACIO Cross notified, order for labs and a total
of 2 doses Lopressor 2.5 mg IV ordered and given (2 hours apart). HR has since remained more consistently 110's-120's with occasional increases to the 140's. Tay updated, no new orders. Pt. sleeping.
[2024-09-20] MEDS: PACERONE 200 MG PO (03:21)
--- NOTE | 2024-09-20 04:03 | PTCARENOTE ---
0800 scheduled amiodarone PO given early (at 0321) per IGNACIO Cross for HR sustaining 130's (AFib). Pt. sleeping soundly when woken to administer.
[2024-09-20] MEDS: TYLENOL 650 MG PO ×2 (05:35→19:57)
[2024-09-20] MEDS: LOPRESSOR 5 MG IV (06:04)
[2024-09-20 06:14] LABS: Blood Urea Nitrogen 20 mg/dl (7-17); Calcium 8.5 mg/dl (8.4-10.2); Carbon Dioxide 30 mmol/L (22-30); Chloride 97 mmol/L (98-107); Estimated Creatinine Clearance 40 ml/min; Glucose 107 mg/dl (70-99); Potassium 3.8 mmol/L (3.5-5.1); Sodium 135 mmol/L (135-145); eGFR > 60.00
--- NOTE | 2024-09-20 06:35 | W.PN.UPDATE ---
Update Note
Progress Note Update
-Patient is sustaining a-fib hr 110s-150s at the time of changing shift last night, asymptomatic. Patient received her night oral dose of Lopressor and currently bp is soft.
-Will check electrolytes and smaller dose of IV Lopressor 2.5mg x2 given. Hr rate down to 110s-120s. Electrolytes within normal level.
-Around 3 am Hr up to 130s asymptomatic and bp 109/ 85. morning dose of amiodarone was given earlier.
-6am hr 130s-150s, bp 121/82, One time of IV Lopressor 5mg given.
[2024-09-20] MEDS: ELIQUIS 5 MG PO ×2 (08:15→19:58)
[2024-09-20] MEDS: TOPROL XL 25 MG PO ×2 (08:15→20:50)
[2024-09-20] MEDS: SENOKOT 8.6 MG PO ×2 (08:15→19:58)
[2024-09-20] MEDS: COLACE 100 MG PO ×2 (08:15→19:58)
[2024-09-20] MEDS: VITAMIN B-12 1000 MCG PO (08:15)
[2024-09-20] MEDS: LASIX 40 MG IV (08:17)
[2024-09-20] MEDS: MIRALAX 17 GRAMS PO (08:17)
[2024-09-20] MEDS: METHOCARBAMOL 500 MG PO (08:21)
[2024-09-20] MEDS: OSCAL 500 + D 500 MG PO (08:21)
--- NOTE | 2024-09-20 08:42 | W.PN.HOSP.TC ---
Today's Communication/Plan
-
Antiarrhythmics and rate control.
Assessment / Plan
Assessment / Plan
Physical exam:
General: Well Developed, Well Nourished and No Apparent Distress
HEENT: Normocephalic, Atraumatic and Moist Mucous Membranes
Respiratory: Few crackles in the bases; Negative Wheezes or Rhonchi
Cardiac: Irregular rate and rhythm, tachycardic, and S1/S2. JVD+
GI: Soft, Nontender and Nondistended
Musculoskeletal: No Clubbing, No Cyanosis. Bilateral lower extremity edema 2+
Neuro: Awake, Alert and Oriented, no neurological deficit
Psych: Calm
A/P:
Persistent atrial fibrillation:
Electrical cardioversion on 08/20 unsuccessful-->started on Tikosyn but failed too--> started amiodarone for antiarrhythmic (200 mg daily). Plan for ablation during this hospital stay given recurrence of event.
On metoprolol succinate 25 mg twice a day and Dig 250 mcg daily
Cardiac monitoring
Appreciated cardiology consult and follow up
Acute diastolic congestive heart failure:
Continue IV diuresis, Lasix 40 mg twice a day--> will switch to oral diuretics
GDMT will be reevaluated down the road--> started beta-blockers of Toprol-XL.
Monitor ins and outs and daily weight
Plan for echo
Hypokalemia:
Replete and trend
Hypomagnesemia:
Replete and trend
Constipation:
Start bowel regimen
CAD:
Continue Eliquis and Zetia and statin
Rosacea:
Continue metronidazole cream and oral Doxy
Hypertension:
Beta-blockers
Hyperlipidemia:
Statin
Elevated LFTs:
Due to passive venous congestion
DVT prophylaxis:
Eliquis
CODE STATUS:
DNR
Total time spent on today's encounter was 52 minutes which included time spent in counseling the patient/family regarding diagnosis and treatment plan as listed above, goals of care, and symptom management. Case was discussed with nursing staff,
specialists, and care coordinators/case management. All labs and imaging personally reviewed by me. Remainder the time spent in detailed review of previous records, lab data, imaging, and other medical provider documentation.
Anticipated Discharge: > 48 hours
Subjective/Interval History
-
Date of Service: September 20, 2024
Patient still having some chest discomfort and shortness of breath. Heart rate elevated today.
Objective Data
-
Labs:
Laboratory Results
09/19/24 09/20/24
21:36 05:29
Sodium 132 L 135
Potassium 3.8 3.8
Chloride 95 L 97 L
Carbon Dioxide 30 30
BUN 27 H 20 H
Creatinine 0.9 0.7
Glucose 141 H 107 H
Calcium 8.8 8.5
Vital Signs:
Vital Signs
Temp Pulse Resp BP Pulse Ox
99.4 F 131 14 125/96 98
09/20/24 07:00 09/20/24 08:15 09/20/24 07:00 09/20/24 08:15 09/20/24 07:00
I&O
09/19/24 09/20/24 09/21/24
06:59 06:59 06:59
Intake Total 720 / 720 490 / 490
Output Total 2650 / 2650 3725 / 3725 100 / 100
Balance -1930 / -1930 -3235 / -3235 -100 / -100
[2024-09-20] MEDS: KCL 40 MEQ PO (09:17)
--- NOTE | 2024-09-20 10:01 | W.PN.CD ---
Today's Communication / Plan
-
PO lasix
Digoxin load
cont amio
Ablation Monday
Impression / Plan
-
I/P: 79M with coronary artery disease (BMS to LAD, 2010), paroxysmal atrial fibrillation (on apixaban), PSVT, hypertension, dyslipidemia, and vasovagal syncope who presented to the emergency department chief complaint of shortness of breath -> AF
with RVR & acute HFpEF
Outpatient conservation officer: Dr. Menard
Persistent atrial fibrillation now with rapid ventricular response
-s/p DCCV 09/17 with recurrence of AF almost immediately.
-Tikosyn- first dose on 09/17/24- 250 mcg q12. Converted to sinus with first dose. QTc became 540 msec with second dose along with NSVT - Tikosyn discontinued
- Digoxin load 500 mcg today --> 250 daily thereafter
- Cont amio
- Plan for ablation Monday of next week
-Oral Anticoagulation: Apixaban 5 mg twice daily, she denies missed doses and abnormal bleeding
-[id number]: Score at least 6 (Heart failure, HTN, age 75 or more, Vascular disease, female gender)
Heart failure, presumed HFpEF - acute (NEW DIAGNOSIS)
-Diuresis MWF with lasix 40 mg PO stop IV
-now weighs 104 lbs
-Case management to [facility] SGLT2
-Daily weight, I/O, and BMP with diuresis
-Heart failure education
-Echocardiogram 02/09/24 - LVEf 60%. this admission
Coronary artery disease
-BMS to LAD in 2010, on apixaban for atrial fibrillation
-Stable without chest pain
Hypertension, follow with diuresis
PSVT, continue beta-nemesio
Hypercholesterolemia, continue simvastatin and Zetia, LDL well below goal
Physical Exam
Vital Signs/Labs
Vital Signs
Temp Pulse Resp BP Pulse Ox
99.4 F 148 14 91/71 98
03/28/25 07:00 09/20/24 09:30 09/20/24 07:00 09/20/24 09:30 09/20/24 07:00
09/19/24 09/20/24 09/21/24
06:59 06:59 06:59
Actual Weight 107 lb 2.314 oz 104 lb 15.04 oz
09/19/24 03:28
09/20/24 05:29
Magnesium 2.0 mg/dl (1.6-2.3) 09/20/24 05:29
Triglycerides 68 mg/dl (10-149) 09/17/24 05:55
LDL Cholesterol, Calc 26 mg/dl 09/17/24 05:55
VLDL Cholesterol, Calc 13 mg/dl (0-30) 09/17/24 05:55
HDL Cholesterol 66 mg/dl 09/17/24 05:55
09/16/24
18:45
Gvk-R-Gnrthosymdv Pept 0
Physical Exam
Constitutional: No acute distress and Comfortable
EENT: Anicteric
Cardiovascular: Pedal edema is absent and Rhythm/rate is irregular
Respiratory: Respiratory effort normal and Lungs clear to auscul.
GI: Soft
Neuro/Psych: AO x 3
Data Reviewed
-
Date of Service: September 20, 2024
EKG: Tracing Personally Visualized and interpreted (af)
Echo: Report Reviewed by me
Labs: Labs Reviewed by me
[2024-09-20] MEDS: LANOXIN 500 MCG PO (10:25)
--- NOTE | 2024-09-20 11:48 | CM ---
Chart reviewed. Patient is independent of ADLS, lives alone in a 2 STH, 1 WILLIAM, 0 DME. Plan is for the patient to return home. CM to follow
--- NOTE | 2024-09-20 11:49 | CM ---
Pricing on Farxiga 10mg daily and Jardiance 10mg daily through the patient's [employer], ID# [id number] is covered. Both cost$115. Patient is agreeable to cost. I will place a free 30 day coupon in the patient's red discharge folder.
[2024-09-20] MEDS: SILVADENE 1 APPLIC TOPICAL (13:21)
--- NOTE | 2024-09-20 18:22 | PTCARENOTE ---
~3808-8912: Patient Aox4x, Afib on tele, HR 140s-160s. BPs soft, SBP 100s. patient on RA satting high 90s. patient c/o mild neck pain, warm blanket given and stated that tylenol helped. OOB with assit x1 to commode and chair. K+ replaced per order.
Dr. Gonsales and Dr. Escamilla about persistent high HR. STAT Dig given and possible ablation next week was discussed. All needs met at this time, call ventura within reach.
~0243-1935: Hygiene care completed, new gown given. HR 120s-130s at this time. Pt c/o back being 'tchy' appears to have a burn from the cardioversion pads, Dr. Escamilla made aware, silvadene cream ordered.
~2321-9345: patient resting in bed. HR [id number], MD aware. All needs met at this time, call ventura within reach.
[2024-09-20] MEDS: LIPITOR 20 MG PO (21:07)
[2024-09-20] MEDS: REFRESH EYE DROPS (PF) 1 DROPS BOTH EYES (21:07)
[2024-09-20] MEDS: ZETIA 10 MG PO (21:07)
--- NOTE | 2024-09-20 22:12 | PTCARENOTE ---
Received pt @ change of shift. AAOx3. Uncontrolled A-fib 120s-140s resting, 160 with ambulation/activity. Asymptomatic. Other VSS. Discussed plan of care for evening. Pt verbalized understanding. Call ventura within reach.
[2024-09-21 04:00] VITALS: BP 147/117
[2024-09-21 04:01] VITALS: BMI 25.2
[2024-09-21 05:17] LABS: Hematocrit 40.5 % (37.0-47.0); Hemoglobin 13.7 g/dL (12.0-16.0); Mean Corp Hgb Conc. 33.8 g/dL (33.0-37.0); Mean Corpuscular Hgb 30.2 pg (27.0-31.0); Mean Corpuscular Volume 89.2 fL (81.0-99.0); Mean Platelet Volume 10.9 fL (7.4-10.4); Platelet Count 263 10^3/uL (130-400); Red Blood Cell Count 4.54 10^6/uL (4.20-5.40); Red Cell Dist. Width 12.8 % (11.5-14.5); White Blood Cell Count 9.2 10^3/uL (4.8-10.8)
[2024-09-21 05:41] LABS: Blood Urea Nitrogen 21 mg/dl (7-17); Calcium 8.9 mg/dl (8.4-10.2); Carbon Dioxide 31 mmol/L (22-30); Chloride 97 mmol/L (98-107); Estimated Creatinine Clearance 40 ml/min; Glucose 103 mg/dl (70-99); Potassium 4.7 mmol/L (3.5-5.1); Sodium 136 mmol/L (135-145); eGFR > 60.00
--- NOTE | 2024-09-21 07:29 | W.PN.HOSP.TC ---
Addendum entered and electronically signed by Pablo Escamilla MD 09/21/24 15:16:
discussed with son
Original Note:
Today's Communication/Plan
-
Antiarrhythmics and rate control. Restart diuretic
Assessment / Plan
Assessment / Plan
Physical exam:
General: Well Developed, Well Nourished and No Apparent Distress
HEENT: Normocephalic, Atraumatic and Moist Mucous Membranes
Respiratory: Few crackles in the bases; Negative Wheezes or Rhonchi
Cardiac: Irregular rate and rhythm, tachycardic, and S1/S2. JVD+
GI: Soft, Nontender and Nondistended
Musculoskeletal: No Clubbing, No Cyanosis. Bilateral lower extremity edema 2+
Neuro: Awake, Alert and Oriented, no neurological deficit
Psych: Calm
A/P:
Persistent atrial fibrillation:
Electrical cardioversion on 08/20 unsuccessful-->started on Tikosyn but failed too--> started amiodarone for antiarrhythmic (200 mg daily). Plan for ablation during this hospital stay given recurrence of event.
On metoprolol succinate 25 mg twice a day and Dig 250 mcg daily
Cardiac monitoring
Appreciated cardiology consult and follow up
Acute diastolic congestive heart failure (pneumonia ruled out):
Change IV diuretics to oral diuretics today
GDMT will be reevaluated down the road--> started beta-blockers of Toprol-XL. Will start SGLT2 inhibitor
Monitor ins and outs and daily weight
Cough medicines
Plan for echo
Hypokalemia:
Replete and trend
Hypomagnesemia:
Replete and trend
Constipation:
Started bowel regimen
Left shoulder pain:
Musculoskeletal
Control measures
CAD:
Continue Eliquis and Zetia and statin
Rosacea:
Continue metronidazole cream and oral Doxy
Hypertension:
Beta-blockers
Hyperlipidemia:
Statin
Elevated LFTs:
Due to passive venous congestion
DVT prophylaxis:
Eliquis
CODE STATUS:
DNR
Total time spent on today's encounter was 52 minutes which included time spent in counseling the patient/family regarding diagnosis and treatment plan as listed above, goals of care, and symptom management. Case was discussed with nursing staff,
specialists, and care coordinators/case management. All labs and imaging personally reviewed by me. Remainder the time spent in detailed review of previous records, lab data, imaging, and other medical provider documentation.
Anticipated Discharge: > 48 hours
Subjective/Interval History
-
Date of Service: September 21, 2024
Patient continues to have rapid heart rate. Chest discomfort on and off. Peripheral edema. She has some cough.
Objective Data
-
Labs:
Laboratory Results
09/21/24
04:21
WBC 9.2
Hgb 13.7
Hct 40.5
Plt Count 263
Sodium 136
Potassium 4.7
Chloride 97 L
Carbon Dioxide 31 H
BUN 21 H
Creatinine 0.7
Glucose 103 H
Calcium 8.9
Vital Signs:
Vital Signs
Temp Pulse Resp BP Pulse Ox
98.5 F 122 18 147/117 99
09/21/24 04:01 09/21/24 06:00 09/21/24 04:01 09/21/24 04:00 09/21/24 04:01
I&O
09/20/24 09/21/24 09/22/24
06:59 06:59 06:59
Intake Total 490 / 490 360 / 360
Output Total 3725 / 3725 1325 / 1325
Balance -3235 / -3235 -965 / -965
[2024-09-21 07:43] VITALS: BP 141/127
[2024-09-21 07:44] VITALS: BP 124/84
[2024-09-21] MEDS: COLACE 100 MG PO ×2 (08:16→19:29)
[2024-09-21] MEDS: METHOCARBAMOL 500 MG PO (08:16)
[2024-09-21] MEDS: ELIQUIS 5 MG PO ×2 (08:16→19:29)
[2024-09-21] MEDS: PACERONE 200 MG PO (08:16)
[2024-09-21] MEDS: SENOKOT 8.6 MG PO ×2 (08:17→19:29)
[2024-09-21] MEDS: TOPROL XL 25 MG PO ×2 (08:17→19:29)
[2024-09-21] MEDS: OSCAL 500 + D 500 MG PO (08:17)
[2024-09-21] MEDS: SILVADENE 1 APPLIC TOPICAL (08:18)
[2024-09-21] MEDS: VITAMIN B-12 1000 MCG PO (08:18)
[2024-09-21] MEDS: MIRALAX 17 GRAMS PO (08:18)
--- NOTE | 2024-09-21 10:17 | W.PN.CD ---
Addendum entered and electronically signed by Doug Deleon MD 09/21/24 11:21:
I saw and examined the patient.
The INDEX CLERK's note was reviewed and I agree with the note.
Comment: The very difficult to control new AF with RVR precipitating HF is leading to inpatient AFib ablation. Will start oral Lasix and add SGLT2-I.
Original Note:
Today's Communication / Plan
-
Follow telemetry
Continue amiodarone and digoxin
Impression / Plan
-
I/P: 79M with coronary artery disease (BMS to LAD, 2010), paroxysmal atrial fibrillation (on apixaban), PSVT, hypertension, dyslipidemia, and vasovagal syncope who presented to the emergency department chief complaint of shortness of breath -> AF
with RVR & acute HFpEF.
Outpatient title assistant: Dr. Menard
Persistent atrial fibrillation, with rapid ventricular response
-S/P DCCV 09/17 with recurrence of AF almost immediately.
-Tikosyn: First dose of 250 mcg on 09/17/24 -> Converted to sinus. QTc became 540 msec with second dose along with NSVT. Tikosyn discontinued.
-Digoxin load 500 mcg 09/20/2024--> 250 mcg daily thereafter
-Continue amiodarone 200 mg daily
-Ablation 09/24/[address] Forman
-Oral Anticoagulation: Apixaban 5 mg twice daily, she denies missed doses and abnormal bleeding
-[id number]: Score at least 6 (Heart failure, HTN, age 75 or more, Vascular disease, female gender)
Heart failure, presumed HFpEF - acute (NEW DIAGNOSIS)
-Diuresed with furosemide IV. Stopped yesterday. Start furosemide 40 mg Monday/Monday/Monday at D/C, daily during admission with uncontrolled rates.
-Current weight 47.4 kg, lowest documented
-Jardiance and Farxiga are both $115, patient is agreeable, Farxiga 10 mg daily started
-Daily weight, I/O, and BMP with diuresis
-Heart failure education
Coronary artery disease
-BMS to LAD in 2010, on apixaban for atrial fibrillation
-Stable without chest pain
Hypertension, follow with diuresis
PSVT, continue beta-nemesio
Hypercholesterolemia, continue simvastatin and Zetia, LDL well below goal
Physical Exam
Vital Signs/Labs
Vital Signs
Temp Pulse Resp BP Pulse Ox
97.8 F 123 20 124/84 96
09/21/24 07:43 09/21/24 08:16 09/21/24 07:43 09/21/24 08:16 09/21/24 07:56
09/20/24 09/21/24 09/22/24
06:59 06:59 06:59
Actual Weight 47.6 kg 47.4 kg
09/21/24 04:21
09/21/24 04:21
Magnesium 2.0 mg/dl (1.6-2.3) 09/21/24 04:21
Triglycerides 68 mg/dl (10-149) 09/17/24 05:55
LDL Cholesterol, Calc 26 mg/dl 09/17/24 05:55
VLDL Cholesterol, Calc 13 mg/dl (0-30) 09/17/24 05:55
HDL Cholesterol 66 mg/dl 09/17/24 05:55
09/16/24
18:45
Jrn-Q-Yvjspaxyeqa Pept 2180
Physical Exam
Constitutional: No acute distress and Comfortable
EENT: Anicteric and Moist mucous membranes
Cardiovascular: Pedal edema is absent and Rhythm/rate is irregular
Respiratory: Respiratory effort normal and Lungs clear to auscul.
GI: Soft, Distention absent, Flat and Non tender
Neuro/Psych: AO x 3
Other: Skin (Warm and dry)
Data Reviewed
-
Date of Service: September 21, 2024
Labs: Labs Reviewed by me
[2024-09-21] MEDS: FARXIGA 10 MG PO (12:25)
[2024-09-21] MEDS: LANOXIN 250 MCG PO (12:26)
[2024-09-21] MEDS: TYLENOL 650 MG PO ×2 (12:29→19:28)
[2024-09-21 15:35] VITALS: BP 118/69
--- NOTE | 2024-09-21 18:18 | PTCARENOTE ---
pt continues to be afib on the monitor, hr in the 140s-160s, vss. pt c/o chronic pain in left shoulder, tyleonol given w/ some relief. notified jo alcazar ordered and placed per order. pt sitting oob in chair and tolerating well. pt
educated on plan of care and pt verbalized understanding. call ventura within reach.
[2024-09-21 19:01] VITALS: BP 123/73
[2024-09-21] MEDS: TESSALON PERLES 100 MG PO (19:31)
[2024-09-21] MEDS: ZETIA 10 MG PO (22:13)
[2024-09-21] MEDS: REFRESH EYE DROPS (PF) 1 DROPS BOTH EYES (22:13)
[2024-09-21] MEDS: LIPITOR 20 MG PO (22:13)
[2024-09-21 22:15] VITALS: BP 115/81
--- NOTE | 2024-09-21 23:12 | PTCARENOTE ---
Received patient at change of shift. Afib on the monitor, HR in the 120s, pt is asymptomatic. Pt complains of 4/10 chronic pain in her left shoulder, heating pad in place and Tylenol administered, see MAR. Pt complains of a frequent dry cough,
Tessalon Perles administered, see MAR. Call ventura within reach.
[2024-09-22] VITALS (8 sets, daily range): BP systolic 120–152; BP diastolic 69–107; BMI 25.3
[2024-09-22 05:23] LABS: Blood Urea Nitrogen 24 mg/dl (7-17); Calcium 8.9 mg/dl (8.4-10.2); Carbon Dioxide 28 mmol/L (22-30); Chloride 100 mmol/L (98-107); Estimated Creatinine Clearance 35 ml/min; Glucose 101 mg/dl (70-99); Potassium 4.3 mmol/L (3.5-5.1); Sodium 136 mmol/L (135-145); eGFR > 60.00
[2024-09-22] MEDS: PACERONE 200 MG PO (08:02)
[2024-09-22] MEDS: OSCAL 500 + D 500 MG PO (08:02)
[2024-09-22] MEDS: ELIQUIS 5 MG PO ×2 (08:02→19:42)
[2024-09-22] MEDS: METHOCARBAMOL 500 MG PO (08:02)
[2024-09-22] MEDS: FARXIGA 10 MG PO (08:02)
[2024-09-22] MEDS: TOPROL XL 25 MG PO ×2 (08:02→19:42)
[2024-09-22] MEDS: LASIX 40 MG PO (08:02)
[2024-09-22] MEDS: MIRALAX PO (08:02)
[2024-09-22] MEDS: SENOKOT PO ×2 (08:03→19:32)
[2024-09-22] MEDS: COLACE PO ×2 (08:03→19:32)
[2024-09-22] MEDS: SILVADENE 1 APPLIC TOPICAL (08:03)
[2024-09-22] MEDS: VITAMIN B-12 1000 MCG PO (08:06)
[2024-09-22] MEDS: TYLENOL 650 MG PO ×2 (08:06→19:42)
[2024-09-22] MEDS: TESSALON PERLES 100 MG PO (08:23)
--- NOTE | 2024-09-22 08:59 | W.PN.HOSP.TC ---
Today's Communication/Plan
-
Rate control and antiarrhythmics. Plan for cardiac ablation.
Assessment / Plan
Assessment / Plan
Physical exam:
General: Well Developed, Well Nourished and No Apparent Distress
HEENT: Normocephalic, Atraumatic and Moist Mucous Membranes
Respiratory: Clear to auscultation bilateral; Negative Wheezes or Rhonchi or Crackles
Cardiac: Irregular rate and rhythm, tachycardic, and S1/S2. JVD+
GI: Soft, Nontender and Nondistended
Musculoskeletal: No Clubbing, No Cyanosis. Bilateral lower extremity edema decreased from prior.
Neuro: Awake, Alert and Oriented, no neurological deficit
Psych: Calm
A/P:
Persistent atrial fibrillation:
Electrical cardioversion on 09/17 unsuccessful-->started on Tikosyn but failed too--> started amiodarone for antiarrhythmic (200 mg daily). Plan for ablation during this hospital stay given recurrence of event.
On metoprolol succinate 25 mg twice a day and Dig 250 mcg daily
On Eliquis 5 mg p.o. twice a day
Cardiac monitoring
Appreciated cardiology consult
Acute diastolic congestive heart failure (pneumonia ruled out):
Change IV diuretics to oral diuretics today--> Lasix 40 mg p.o. daily
GDMT will be reevaluated down the road--> started beta-blockers of Toprol-XL. Started SGLT2 inhibitor
Monitor ins and outs and daily weight
Cough medicines prn
Plan for echo
Hypokalemia:
Replete and trend
Hypomagnesemia:
Replete and trend
Constipation:
Started bowel regimen
Left shoulder pain:
Musculoskeletal
Control measures
CAD:
Continue Eliquis and Zetia and statin
Rosacea:
Continue metronidazole cream and oral Doxy
Hypertension:
Beta-blockers
Hyperlipidemia:
Statin
Elevated LFTs:
Due to passive venous congestion
DVT prophylaxis:
Eliquis
CODE STATUS:
DNR
Total time spent on today's encounter was 52 minutes which included time spent in counseling the patient/family regarding diagnosis and treatment plan as listed above, goals of care, and symptom management. Case was discussed with nursing staff,
specialists, and care coordinators/case management. All labs and imaging personally reviewed by me. Remainder the time spent in detailed review of previous records, lab data, imaging, and other medical provider documentation.
Anticipated Discharge: > 48 hours
Subjective/Interval History
-
Date of Service: September 22, 2024
Patient continues to have left-sided chest discomfort on and off. Heart rate remains uncontrolled. Less shortness of breath overall. Still having peripheral edema although less. Afebrile
Objective Data
-
Labs:
Laboratory Results
09/22/24
04:23
Sodium 136
Potassium 4.3
Chloride 100
Carbon Dioxide 28
BUN 24 H
Creatinine 0.8
Glucose 101 H
Calcium 8.9
Vital Signs:
Vital Signs
Temp Pulse Resp BP Pulse Ox
98.4 F 116 20 143/92 98
09/22/24 07:35 09/22/24 04:09 09/22/24 07:35 09/22/24 04:09 09/22/24 07:35
I&O
09/21/24 09/22/24 09/23/24
06:59 06:59 06:59
Intake Total 360 / 360 480 / 480 300 / 300
Output Total 1325 / 1325 1175 / 1175 400 / 400
Balance -965 / -965 -695 / -695 -100 / -100
--- NOTE | 2024-09-22 10:15 | PTCARENOTE ---
Rec'd pt at change of shift. Tele- a-fib 120s-140s resting, 160 with ambulation/activity. Asymptomatic. Pt OOB in recliner chair. Discussed plan of care and verbalizes understanding. Call vent[facility] within reach.
[2024-09-22] MEDS: LANOXIN 250 MCG PO (12:09)
[2024-09-22] MEDS: ANESTHETIC LOZENGE 1 LOZENGE PO ×2 (13:45→19:42)
--- NOTE | 2024-09-22 17:09 | W.PN.CD ---
Today's Communication / Plan
-
Given age/amio will lower digoxin to 0.125 mg daily to decrease toxicity risk
Anticipate ablation Monday
Impression / Plan
-
Background: 79M with coronary artery disease (BMS to LAD, 2010), paroxysmal atrial fibrillation (on apixaban), PSVT, hypertension, dyslipidemia, and vasovagal syncope who presented to the emergency department chief complaint of shortness of breath
-> AF with RVR & acute HFpEF. Outpatient senior software development engineer: Dr. Menard
Persistent atrial fibrillation, with rapid ventricular response
-S/P DCCV 09/17 with recurrence of AF almost immediately.
-Tikosyn: First dose of 250 mcg on 09/17/24 -> Converted to sinus. QTc became 540 msec with second dose along with NSVT. Tikosyn discontinued.
-AFib with RVR recurred off dofetilide
-Now on Dig, metoprolol, and Amio, rate still fast
-The very difficult to control new AF with RVR precipitating HF is leading to inpatient AFib ablation. Ablation 09/24/[address] Forman
-Oral Anticoagulation: Apixaban 5 mg twice daily, she denies missed doses and denies abnormal bleeding
-[id number]: Score at least 6 (Heart failure, HTN, age 75 or more, Vascular disease, female gender)
Acute HFpEF
-New, we can hope just precipitated by fast AFib but fast HF may have precipitated AFib....
-Now on oral Lasix
-Now on SGLT2-I
-Later add MRA and after that can consider ARB or ARNI (if BP permits)
-Current weight 47.4=>47.5 kg, lowest documented
-Daily weight, I/O, and BMP with diuresis
-Heart failure education
Coronary artery disease
-BMS to LAD in 2010, on apixaban for atrial fibrillation
-Stable without chest pain
-Nuc stress test normal 01/2024
Moderate mitral regurgitation with dense MAC
Moderate aortic sclerosis w/o stenosis
Hypertension, follow with diuresis
PSVT, continue beta-nemesio
Hypercholesterolemia, continue simvastatin and Zetia, LDL well below goal
Subjective:
Feels tired. Some cough
Echo 09/17/2024:
Normal biventricular size and systolic function without regional wall motion
abnormality.
Grade III diastolic dysfunction with elevated LA pressure (MV E/A 3.3).
Moderate mitral regurgitation with dense MAC.
Moderate aortic sclerosis without stenosis.
Mild to moderate tricuspid regurgitation.
Estimated PASP 43 mmHg.
NSR.
Pleural effusion noted.
Compared to prior study of 02/09/2024 grade III diastolic dysfunction and
pleural effusion are now noted. MR has increased from mild to moderate. PA
pressure has increased from 25-30 to 43 mmHg.
Val Nuc Stress 02/02/2024: Normal
Physical Exam
Vital Signs/Labs
Vital Signs
Temp Pulse Resp BP Pulse Ox
98.1 F 108 20 129/69 98
09/22/24 15:53 09/22/24 16:00 09/22/24 15:53 09/22/24 15:52 09/22/24 15:53
09/21/24 09/22/24 09/23/24
06:59 06:59 06:59
Actual Weight 47.4 kg 47.5 kg
09/21/24 04:21
09/22/24 04:23
Magnesium 2.0 mg/dl (1.6-2.3) 09/21/24 04:21
Triglycerides 68 mg/dl (10-149) 09/17/24 05:55
LDL Cholesterol, Calc 26 mg/dl 09/17/24 05:55
VLDL Cholesterol, Calc 13 mg/dl (0-30) 09/17/24 05:55
HDL Cholesterol 66 mg/dl 09/17/24 05:55
09/16/24
18:45
Zrk-N-Zdzwpprqhrs Pept 0
Physical Exam
Constitutional: No acute distress
EENT: Anicteric
Cardiovascular: Rhythm/rate is irregular (and still rapid)
Respiratory: Respiratory effort normal and Lungs clear to auscul.
GI: Soft and Distention absent
Neuro/Psych: AO x 3
Data Reviewed
-
Date of Service: September 22, 2024
[2024-09-22] MEDS: ZETIA 10 MG PO (22:19)
[2024-09-22] MEDS: REFRESH EYE DROPS (PF) 1 DROPS BOTH EYES (22:19)
[2024-09-22] MEDS: LIPITOR 20 MG PO (22:19)
--- NOTE | 2024-09-22 22:46 | PTCARENOTE ---
Received patient at change of shift. Afib on the monitor, HR in [id number], asymptomatic. Pt complains of cough, PRN Lozenge administered as per AUG. Pt complains of 4/10 L shoulder pain, PRN Tylenol administered as per AUG. Call [facility] within reach.
[2024-09-23 03:26] VITALS: BP 143/84; BMI 24.9
[2024-09-23 04:18] LABS: Blood Urea Nitrogen 25 mg/dl (7-17); Calcium 8.7 mg/dl (8.4-10.2); Carbon Dioxide 31 mmol/L (22-30); Chloride 99 mmol/L (98-107); Estimated Creatinine Clearance 39 ml/min; Glucose 105 mg/dl (70-99); Potassium 4.5 mmol/L (3.5-5.1); Sodium 136 mmol/L (135-145); eGFR > 60.00
[2024-09-23 07:17] VITALS: BP 154/77
--- NOTE | 2024-09-23 07:43 | PTCARENOTE ---
Patient assisted to the bathroom this morning, remains in AF. HR 110's at rest, rates up to 160 with activity. Await ablation tomorrow, offers no complaints. Sitting oob in the chair, call ventura in reach.
[2024-09-23] MEDS: MIRALAX PO (08:09)
[2024-09-23] MEDS: COLACE PO ×2 (08:09→19:30)
[2024-09-23] MEDS: ELIQUIS 5 MG PO ×2 (08:09→19:29)
[2024-09-23] MEDS: SENOKOT PO ×2 (08:09→19:30)
[2024-09-23] MEDS: METHOCARBAMOL 500 MG PO (08:10)
[2024-09-23] MEDS: OSCAL 500 + D 500 MG PO (08:10)
[2024-09-23] MEDS: FARXIGA 10 MG PO (08:10)
[2024-09-23] MEDS: PACERONE 200 MG PO (08:10)
[2024-09-23] MEDS: LASIX 40 MG PO (08:10)
[2024-09-23] MEDS: SILVADENE 1 APPLIC TOPICAL (08:11)
[2024-09-23] MEDS: TOPROL XL 25 MG PO ×2 (08:11→19:29)
[2024-09-23] MEDS: VITAMIN B-12 1000 MCG PO (08:11)
--- NOTE | 2024-09-23 08:57 | W.PN.HOSP.TC ---
Today's Communication/Plan
-
see A/P
Assessment / Plan
Assessment / Plan
A/P:
# Persistent atrial fibrillation:
Electrical cardioversion on 09/17 unsuccessful -> started on Tikosyn but failed too -> started amiodarone for antiarrhythmic (200 mg daily).
Plan for ablation 09/24 given recurrence of event.
On metoprolol succinate 25 mg twice a day and Dig 250 mcg daily
On Eliquis 5 mg p.o. twice a day
Cardiac monitoring
Appreciated cardiology input
# Acute diastolic congestive heart failure (pneumonia ruled out):
Changed IV diuretics to oral diuretics -> Lasix 40 mg p.o. daily
GDMT: started beta-nemesio Toprol-XL. Started SGLT2 inhibitor
Monitor ins and outs and daily weight
Cough medicines prn
echo: Normal biventricular size and systolic function without regional wall motion abnormality. Grade III diastolic dysfunction. Moderate mitral regurgitation. Pleural effusion noted. Compared to prior study of 02/09/2024 grade III diastolic
dysfunction and pleural effusion are now noted. MR has increased from mild to moderate. PA pressure has increased from 25-30 to 43 mmHg.
# Left shoulder pain, likely Musculoskeletal
# L chest wall pain
check L shoulder XR
lidocaine cream to apply over L chest wall
# Hypokalemia:
# Hypomagnesemia:
Repleted and resolved
# Constipation:
Started bowel regimen
# CAD:
Continue Eliquis and Zetia and statin
# Rosacea:
Continue metronidazole cream and oral Doxy
# Hypertension:
Beta-blockers
# Hyperlipidemia:
Statin
# Mild elevation of LFTs, resolved
Due to passive venous congestion
DVT prophylaxis: Eliquis
CODE STATUS: DNR
total time spent 51 min
Anticipated Discharge: 24 - 48 hours
Subjective/Interval History
-
Date of Service: September 23, 2024
Objective Data
-
Labs:
Laboratory Results
09/23/24
03:32
Sodium 136
Potassium 4.5
Chloride 99
Carbon Dioxide 31 H
BUN 25 H
Creatinine 0.7
Glucose 105 H
Calcium 8.7
Vital Signs:
Vital Signs
Temp Pulse Resp BP Pulse Ox
37.2 C 137 16 154/77 100
09/23/24 07:15 09/23/24 07:17 09/23/24 07:15 09/23/24 07:17 09/23/24 07:15
I&O
09/22/24 09/23/24 09/24/24
06:59 06:59 06:59
Intake Total 480 / 480 600 / 600
Output Total 1175 / 1175 400 / 400
Balance -695 / -695 200 / 200
Review of Systems
-
History Source: Patient
Cardiac: Reports Other (L chest wall pain)
Musculoskeletal: Reports Joint Pain (L shoulder pain)
Physical Exam
-
General: Well Developed, No Apparent Distress, Comfortable, Appears Chronically Ill and Other (frail); Negative Respiratory Distress
HEENT: Normocephalic, Atraumatic, Nose Appears Normal and Ears Appear Normal; Negative Oxygen
Respiratory: Clear to Auscultation and Non Labored Respirations; Negative Accessory Resp Muscle Use
Cardiac: Regular Rhythm and S1/S2
GI: Soft, Nontender, Nondistended and Normal Bowel Sounds
Skin: Warm and Dry
Neuro: Awake, Alert and Oriented
Psych: Calm and Intact Judgement/Insight
Data Reviewed
-
Medical Tests (Nuc Med, Echo etc): Report Reviewed by me (echo)
Labs: Labs Reviewed by me
--- NOTE | 2024-09-23 09:01 | W.PN.CD ---
Today's Communication / Plan
-
continue oral regimen for HF
plan for A fib ablation in AM
Impression / Plan
-
Background: 79M with coronary artery disease (BMS to LAD, 2010), paroxysmal atrial fibrillation (on apixaban), PSVT, hypertension, dyslipidemia, and vasovagal syncope who presented to the emergency department chief complaint of shortness of breath
-> AF with RVR & acute HFpEF. Outpatient competitive intelligence analyst: Dr. Menard
Persistent atrial fibrillation, with rapid ventricular response
-S/P DCCV 09/17 with recurrence of AF almost immediately.
-Tikosyn: First dose of 250 mcg on 09/17/24 -> Converted to sinus. QTc became 540 msec with second dose along with NSVT. Tikosyn discontinued.
-AFib with RVR recurred off dofetilide
-Now on Dig, metoprolol, and Amio: rate still fast
-The very difficult to control new AF with RVR precipitating HF is leading to inpatient AFib ablation. Ablation 09/24/[address] Forman
-Oral Anticoagulation: Apixaban 5 mg twice daily, she denies missed doses and denies abnormal bleeding
-[id number]: Score at least 6 (Heart failure, HTN, age 75 or more, Vascular disease, female gender)
Acute HFpEF
-EF 55-60%
-New, likely precipitated by fast AFib, but HF may have precipitated AFib....
-Current weight 46.8 kg, lowest documented
-Now on oral Lasix 40mg daily
-Now on SGLT2-I (farxiga 10mg daily)
-will add entresto post PVI if BP remains elevated; eventual MRA
Coronary artery disease
-BMS to LAD in 2010, on apixaban for atrial fibrillation
-Stable without chest pain
-Nuc stress test normal 01/2024
Moderate mitral regurgitation with dense MAC
Aortic sclerosis w/o stenosis
Hypertension, follow with diuresis
PSVT, continue beta-nemesio
Hypercholesterolemia, continue simvastatin and Zetia, LDL well below goal
Echo 09/17/2024:
Normal biventricular size and systolic function without regional wall motion
abnormality.
Grade III diastolic dysfunction with elevated LA pressure (MV E/A 3.3).
Moderate mitral regurgitation with dense MAC.
Moderate aortic sclerosis without stenosis.
Mild to moderate tricuspid regurgitation.
Estimated PASP 43 mmHg.
NSR.
Pleural effusion noted.
Compared to prior study of 02/09/2024 grade III diastolic dysfunction and
pleural effusion are now noted. MR has increased from mild to moderate. PA
pressure has increased from 25-30 to 43 mmHg.
Val Nuc Stress 02/02/2024: Normal
Physical Exam
Vital Signs/Labs
Vital Signs
Temp Pulse Resp BP Pulse Ox
98.9 F 137 16 154/77 100
09/23/24 07:15 09/23/24 07:17 09/23/24 07:15 09/23/24 07:17 09/23/24 07:15
09/22/24 09/23/24 09/24/24
06:59 06:59 06:59
Actual Weight 47.5 kg 46.8 kg
09/21/24 04:21
09/23/24 03:32
Magnesium 2.0 mg/dl (1.6-2.3) 09/21/24 04:21
Triglycerides 68 mg/dl (10-149) 09/17/24 05:55
LDL Cholesterol, Calc 26 mg/dl 09/17/24 05:55
VLDL Cholesterol, Calc 13 mg/dl (0-30) 09/17/24 05:55
HDL Cholesterol 66 mg/dl 09/17/24 05:55
09/16/24
18:45
Zdk-J-Jikrrptzocc Pept 2180
Physical Exam
Constitutional: No acute distress
EENT: Moist mucous membranes
Cardiovascular: Pedal edema is absent, JVD pressure is normal, Rhythm/rate is irregular and Systolic murmur present
Respiratory: Respiratory effort normal and Lungs clear to auscul.
Neuro/Psych: AO x 3
Data Reviewed
-
Date of Service: September 23, 2024
EKG: Other (Tele: A fib 120s)
Echo: Report Reviewed by me
Labs: Labs Reviewed by me
--- NOTE | 2024-09-23 10:15 | PTCARENOTE ---
Patient has decreased ROM and pain left shoulder, states this has been a chronic problem but is more severe and limiting. Patient sent for an x-ray of the left shoulder and 4% lidocaine cream ordered for the patient.
[2024-09-23] MEDS: LMX 4 1 APPLIC TOPICAL (10:24)
[2024-09-23] MEDS: TYLENOL 650 MG PO ×2 (10:28→18:27)
[2024-09-23 12:07] VITALS: BP 124/82
[2024-09-23] MEDS: LANOXIN 125 MCG PO (12:17)
--- NOTE | 2024-09-23 12:30 | CM ---
Addendum entered by KENIA Quinones 09/23/24 15:37:
[facility] able to accept.
[facility]im[facility] fax# [phone]
Original Note:
CM following for DC planning needs.
Met w/ patient and LUCERO at bedside. Pt. has some anxiety regarding procedure tomorrow. Emotional support provided.
Pt. requesting notary for her Advanced Directive and POA. Call placed to Ginger Frye, who will be up to patient's room at 2PM.
We reviewed DC plans. Pt. resides alone in a private, 2 story home. Pt. would be agreeable to VN; would prefer [facility] but since [facility] does not go to [facility], would prefer [facility]. Will initiate referral.
Plan is for home w/ [facility], if accepted.
[2024-09-23 18:17] VITALS: BP 118/72
[2024-09-23] MEDS: TESSALON PERLES 100 MG PO (18:28)
[2024-09-23 19:29] VITALS: BP 127/78
[2024-09-23 22:13] VITALS: BP 125/62
[2024-09-23] MEDS: REFRESH EYE DROPS (PF) 1 DROPS BOTH EYES (22:14)
[2024-09-23] MEDS: ZETIA 10 MG PO (22:14)
[2024-09-23] MEDS: LIPITOR 20 MG PO (22:14)
[2024-09-24] VITALS (14 sets, daily range): BP systolic 96–139; BP diastolic 48–98; BMI 24.9
--- NOTE | 2024-09-24 00:04 | PTCARENOTE ---
Received patient at change of shift. Afib on the monitor, HR in the 100s. NPO at midnight for ablation. No complaints from pt at this time, call ventura within reach.
[2024-09-24 03:51] LABS: Blood Urea Nitrogen 27 mg/dl (7-17); Calcium 9.6 mg/dl (8.4-10.2); Carbon Dioxide 29 mmol/L (22-30); Chloride 96 mmol/L (98-107); Estimated Creatinine Clearance 39 ml/min; Glucose 101 mg/dl (70-99); Potassium 4.5 mmol/L (3.5-5.1); Sodium 135 mmol/L (135-145); eGFR > 60.00
--- NOTE | 2024-09-24 08:01 | W.PN.HOSP.TC ---
Today's Communication/Plan
-
see A/P
for Ablation today
Assessment / Plan
Assessment / Plan
A/P:
# Persistent atrial fibrillation:
Electrical cardioversion on 09/17 unsuccessful -> started on Tikosyn but failed too -> started amiodarone for antiarrhythmic (200 mg daily).
Plan for ablation 09/24 given recurrence of event.
On metoprolol succinate 25 mg twice a day and Dig 250 mcg daily
On Eliquis 5 mg p.o. twice a day
Cardiac monitoring
Appreciated cardiology input
# Acute diastolic congestive heart failure (pneumonia ruled out):
Changed IV diuretics to oral diuretics -> Lasix 40 mg p.o. daily
GDMT: started beta-nemesio Toprol-XL. Started SGLT2 inhibitor
Monitor ins and outs and daily weight
Cough medicines prn
echo: Normal biventricular size and systolic function without regional wall motion abnormality. Grade III diastolic dysfunction. Moderate mitral regurgitation. Pleural effusion noted. Compared to prior study of 02/09/2024 grade III diastolic
dysfunction and pleural effusion are now noted. MR has increased from mild to moderate. PA pressure has increased from 25-30 to 43 mmHg.
# Left shoulder pain, likely Musculoskeletal
# L chest wall pain
L shoulder XR showed degenerative changes. Soft tissue calcification adjacent to the head of the proximal left humerus which could represent calcific tendinitis and/or bursitis.
cont lidocaine cream to apply over L chest wall
# Hypokalemia:
# Hypomagnesemia:
Repleted and resolved
# Constipation:
Started bowel regimen
# CAD:
Continue Eliquis and Zetia and statin
# Rosacea:
Continue metronidazole cream and oral Doxy
# Hypertension:
Beta-blockers
# Hyperlipidemia:
Statin
# Mild elevation of LFTs, resolved
Due to passive venous congestion
DVT prophylaxis: Eliquis
CODE STATUS: DNR
Anticipated Discharge: 24 - 48 hours
Subjective/Interval History
-
Date of Service: September 24, 2024
Objective Data
-
Labs:
Laboratory Results
09/24/24
02:19
Sodium 135
Potassium 4.5
Chloride 96 L
Carbon Dioxide 29
BUN 27 H
Creatinine 0.7
Glucose 101 H
Calcium 9.6
Vital Signs:
Vital Signs
Temp Pulse Resp BP Pulse Ox
36.8 C 94 18 120/81 98
09/24/24 02:08 09/24/24 04:00 09/24/24 02:08 09/24/24 02:08 09/24/24 02:08
I&O
09/23/24 09/24/24 09/25/24
06:59 06:59 06:59
Intake Total 600 / 600 360 / 360
Output Total 400 / 400
Balance 200 / 200 360 / 360
Review of Systems
-
History Source: Patient
All other systems: Reviewed and negative
Physical Exam
-
General: Well Developed, No Apparent Distress, Comfortable, Appears Chronically Ill and Other (frail); Negative Respiratory Distress
HEENT: Normocephalic, Atraumatic, Nose Appears Normal and Ears Appear Normal; Negative Oxygen
Respiratory: Clear to Auscultation and Non Labored Respirations; Negative Accessory Resp Muscle Use
Cardiac: Regular Rhythm and S1/S2
GI: Soft, Nontender, Nondistended and Normal Bowel Sounds
Skin: Warm and Dry
Neuro: Awake, Alert and Oriented
Psych: Calm and Intact Judgement/Insight
Data Reviewed
-
Medical Tests (Nuc Med, Echo etc): Report Reviewed by me (echo)
Labs: Labs Reviewed by me
[2024-09-24] MEDS: COLACE PO ×3 (08:32→20:24)
[2024-09-24] MEDS: MIRALAX PO (08:33)
[2024-09-24] MEDS: FARXIGA 10 MG PO (08:35)
[2024-09-24] MEDS: LASIX 40 MG PO (08:35)
[2024-09-24] MEDS: METHOCARBAMOL 500 MG PO (08:36)
[2024-09-24] MEDS: OSCAL 500 + D 500 MG PO (08:36)
[2024-09-24] MEDS: SENOKOT PO ×3 (08:36→20:24)
[2024-09-24] MEDS: TOPROL XL 25 MG PO ×2 (08:36→20:20)
[2024-09-24] MEDS: PACERONE 200 MG PO (08:36)
[2024-09-24] MEDS: VITAMIN B-12 1000 MCG PO (08:36)
[2024-09-24] MEDS: SILVADENE 1 APPLIC TOPICAL (08:36)
--- NOTE | 2024-09-24 09:11 | PTCARENOTE ---
Rec'd pt at handoff. Tele- Afib. Assessment completed as documented. Pt aware that she is NPO for ablation today. Currently OOB in chair; call lorenzo w/in reach.
--- NOTE | 2024-09-24 10:25 | W.PN.CD ---
Today's Communication / Plan
-
- AF ablation today.
Impression / Plan
-
Background: 79M with coronary artery disease (BMS to LAD, 2010), paroxysmal atrial fibrillation (on apixaban), PSVT, hypertension, dyslipidemia, and vasovagal syncope who presented to the emergency department chief complaint of shortness of breath
-> AF with RVR & acute HFpEF. Outpatient mortgage servicing specialist: Dr. Menard
Persistent atrial fibrillation, with rapid ventricular response
-Difficult to control. Not able to send home with fast rates and hypotension.
-S/P DCCV 09/17 with recurrence of AF almost immediately.
-Tikosyn: First dose of 250 mcg on 09/17/24 -> Converted to sinus. QTc became 540 msec with second dose along with NSVT. Tikosyn discontinued.
-AFib with RVR recurred off dofetilide
-Now on Dig, metoprolol, and Amio: rate still fast
-The very difficult to control new AF with RVR precipitating HF is leading to inpatient AFib ablation. Ablation planned for today.
-Oral Anticoagulation: Apixaban 5 mg twice daily, she denies missed doses and denies abnormal bleeding
-[id number]: Score at least 6 (Heart failure, HTN, age 75 or more, Vascular disease, female gender)
Acute HFpEF
-EF 55-60%
-New, likely precipitated by fast AFib, but HF may have precipitated AFib....
-Current weight 46.8 kg, lowest documented
-Now on oral Lasix 40mg daily
-Now on SGLT2-I (farxiga 10mg daily)
-will add entresto post PVI if BP remains elevated; eventual MRA
Coronary artery disease
-BMS to LAD in 2010, on apixaban for atrial fibrillation
-Stable without chest pain
-Nuc stress test normal 01/2024
Moderate mitral regurgitation with dense MAC
Aortic sclerosis w/o stenosis
Hypertension, follow with diuresis
PSVT, continue beta-nemesio
Hypercholesterolemia, continue simvastatin and Zetia, LDL well below goal
Echo 09/17/2024:
Normal biventricular size and systolic function without regional wall motion
abnormality.
Grade III diastolic dysfunction with elevated LA pressure (MV E/A 3.3).
Moderate mitral regurgitation with dense MAC.
Moderate aortic sclerosis without stenosis.
Mild to moderate tricuspid regurgitation.
Estimated PASP 43 mmHg.
NSR.
Pleural effusion noted.
Compared to prior study of 02/09/2024 grade III diastolic dysfunction and
pleural effusion are now noted. MR has increased from mild to moderate. PA
pressure has increased from 25-30 to 43 mmHg.
Val Nuc Stress 02/02/2024: Normal
Physical Exam
Vital Signs/Labs
Vital Signs
Temp Pulse Resp BP Pulse Ox
97.3 F 127 20 131/98 100
09/24/24 08:27 09/24/24 08:26 09/24/24 08:27 09/24/24 08:26 09/24/24 08:27
09/23/24 09/24/24 09/25/24
06:59 06:59 06:59
Actual Weight 46.8 kg 46.811 kg
09/21/24 04:21
09/24/24 02:19
Magnesium 2.0 mg/dl (1.6-2.3) 09/24/24 02:19
Triglycerides 68 mg/dl (10-149) 09/17/24 05:55
LDL Cholesterol, Calc 26 mg/dl 09/17/24 05:55
VLDL Cholesterol, Calc 13 mg/dl (0-30) 09/17/24 05:55
HDL Cholesterol 66 mg/dl 09/17/24 05:55
09/16/24
18:45
Chv-Y-Mmbjwczmesr Pept 2180
Physical Exam
Constitutional: No acute distress and Comfortable
EENT: Anicteric and Moist mucous membranes
Cardiovascular: Pedal edema is absent, Rhythm/rate is irregular and Systolic murmur present
Respiratory: Respiratory effort normal, Lungs clear to auscul. and Crackles Absent
GI: Soft, Non tender and Normal bowel sounds
Neuro/Psych: Alert, Oriented and AO x 3
Data Reviewed
-
Date of Service: September 24, 2024
Medical Decision Making: Reviewed Test Results, Test Interpretation and Review of Case with other Provider
EKG: Tracing Personally Visualized and interpreted
Echo: Report Reviewed by me
Labs: Labs Reviewed by me
Old Records: Reviewed
[2024-09-24 12:26] LABS: ACT-LR - POC 279 Seconds (116-155)
[2024-09-24 12:52] LABS: ACT-LR - POC 347 Seconds (116-155)
[2024-09-24 13:14] LABS: ACT-LR - POC 348 Seconds (116-155)
[2024-09-24] MEDS: LANOXIN PO (13:43)
--- NOTE | 2024-09-24 13:43 | ITS.CL.ABL ---
Oncology Specialist - Ablation
Ablation
Procedure Report:
AFIB / A flutter ablation:
Ms. Sanchez is a very pleasant 79 yr old woman with medical history significant for symptomatic persistent atrial fibrillation, failed Tikosyn, Amiodarone, Diltiazem and Metoprolol with difficult to control heart rate on digoxin and eliquis is here
in the EP lab for atrial fibrillation / flutter ablation
Date of Procedure:
09/24/2024
Indications:
Symptomatic persistent atrial fibrillation
Pre-Operative Diagnosis:
Persistent atrial fibrillation
Post-Operative Diagnosis:
Persistent atrial fibrillation
Procedure Performed:
Atrial fibrillation ablation with wide area circumferential ablation (WACA) approach for pulmonary vein isolation
Posterior wall isolation
Performing Physician:
Kathy Forman MD
Assistants:
EP staff
Anesthesia:
See anesthesia records
Detailed Description of the Procedure:
Written informed consent was obtained from the patient after a full explanation of the risks and benefits of the procedure including the risks of sedation and anesthesia.
The patient was brought to the electrophysiology laboratory in stable condition in fasting state. Continuous electrocardiographic and hemodynamic monitoring was initiated.
The initial rhythm was atrial fibrillation.
The procedure site was meticulously prepared with surgical scrub and allowed to dry with no pooling. Sterile draping was applied to cover the procedure site. The image intensifier was draped with sterile bag and positioned over the patient. After
infusion of local anesthetic, vascular access was obtained under ultrasound guidance and sheaths were placed over guide wire as detailed below.
The images of the ultrasound of the femoral vessels were stored in patient chart.
Sheath and Catheter Placement:
In the right femoral vein, an 8-American sheath was placed under ultrasound guidance for use during the ablation procedure. And mapping catheter was intermittently placed in the high right atrium, right ventricle, left atrium and left ventricle. In
the left femoral vein, a 9-Fr long sheath was placed for use during intracardiac echo procedure.
The sheaths were upgraded as needed during the case. Intracardiac catheters were positioned using direct fluoroscopic guidance.� ICE catheter was placed in RA. The following catheters / sheaths were placed
Sheaths:
��������� Agilis sheath in right femoral vein upgraded from 8Fr in right femoral vein
��������� 9Fr in left femoral vein
Catheters:
��������� The Affera Sphere 9 catheter -bidirectional D/F� - at locations of HRA, RV, LA and LV.
��������� ICE catheter -AccuNav -� at locations of RA, SVC, and RV.
Heparin was initiated after the access was obtained.
Intracardiac ECHO:
An 8-American AcuNav intracardiac ECHO (ICE) probe was advanced through the 9-American sheath in the left femoral vein into the right atrium under fluoroscopic and ICE ultrasound image guidance and a baseline ECHO study was performed. The left atrial
size was dilated. There was trace tricuspid regurgitation. The aortic valve was grossly normal. There was normal left ventricular systolic function. There is no pericardial effusion. The LIZ has baseline low velocities. The pulmonary had good flow
identified.
During the procedure, ICE was used for monitoring of complications, guidance of trans-septal puncture, monitor the catheter position and tracking ablation lesions. No change in the pericardial space noted throughout the procedure.
Trans-septal Puncture:
Heparin was initiated and infused to maintain appropriate ACT. A J-tipped guidewire was advanced through into the superior vena cava under fluoroscopic and ICE guidance. The Agilis sheath was advanced into the superior vena cava over a guidewire.
The BRK needle was placed inside the Agilis sheath.� The apparatus was withdrawn until it was in contact with the fossa ovalis. The position was adjusted based on fluoroscopy and ultrasound images from ICE. Under fluoroscopic, hemodynamic and ICE
ultrasound guidance, left atrium was cannulated by advancing the needle. Once atrial septum was cannulated, the needle was pulled back and the guide wire was advanced through the needle into the left atrium. The guide wire was advanced into the left
superior pulmonary vein. Both the sheath and the dilator was advanced into the left atrium. The dilator with the needle was withdrawn. Blood was aspirated from the Agilis sheath and arterial blood confirmed. The sheath was flushed. Saline injection
noted into the left atrium on ICE. The waveform of the LA pressure was recorded. The mapping catheter was advanced in the Agilis sheath into the left pulmonary vein.
3D Electroanatomic Mapping:
Using the Sphere 9 Affera catheter advanced through Agilis sheath into the left atrium, an electroanatomic map (EAM) of the left atrium was created using [employer]� mapping system with Prism-1 software. The map was used for localization of catheter
position and tacking of ablation lesions. The EAM of the left atrium showed a total of 4 PVs with two left and the two right sided pulmonary veins with all electrically connected to the body the LA. It showed scattered scar on the posterior and
anterior wall of the LA. The LA was severely dilated in size.
Following the EAM, preparation were made for ablation.
Ablation:
Ablation # 1: Pulmonary vein Isolation:
Pulsed field ablation was performed using an open irrigation, bidirectional, contact sensing, dual energy ablation catheter ([employer] sphere -9) by completing the circumferential lesions around the left and right pulmonary veins achieving pulmonary
vein isolation.
Cardioversion:
Due to the persistence of atrial fibrillation during the case, the decision was made to proceed with a cardioversion followed by the remainder of the ablation as detailed below. Therefore, a 200J shock was delivered to the chest via Zoll patches
placed with episcopal of sinus rhythm. The patient remained hemodynamically stable throughout.
Confirmation of the PVI and bidirectional block:
Following achievement of entrance block at the pulmonary veins, pacing from the Sphere 9 affera catheter in each of the four veins at 20 milliamps for 4 milliseconds showed entrance and exit block.
The LA was mapped with The [employer]� mapping system with Prism-1 software in sinus rhythm confirming the line of block at the ablation lesions lines.
There was extensive scar noted in the posterior wall with slowing of conduction making a substance for reentry flutter.
Ablation # 2: Roof line Formation:
There was a clear channel of electrical activity left in the posterior wall with multiple CFAE and AF areas on the roof and ablation in that area increased the risk of atrial flutter and decision was made to create a roof line to block a slow
conduction. A set of pulsed field ablations were placed on the roof line connecting the left superior pulmonary vein ablation lesions to the right superior pulmonary vein lesions rings.
Ablation # 3: Posterior wall isolation with the Box lesions set Formation:
There was a significant fractionation seen in the posterior wall and LA AF foci along with CFAE made it clear as the posterior wall is critical in maintaining the atrial fibrillation and the decision was made to isolate the posterior wall by
creating a �Box� lesions.
A set of Pulsed field ablations were placed on the floor line connecting the left inferior pulmonary vein ablation lesions to the right inferior pulmonary vein lesions rings.
The sphere 9 in the posterior wall showed entrance block and the pacing from the posterior wall showed no exit from the box lesions confirming the exit block.
EP study:
Sinus Node Function: The sinus node functions are within acceptable normal range.
Atrioventricular Sonia Function: �Normal AV conduction noted.
Procedure End
ICE study was done again that showed no epicardial accumulation. No complications noted.
Following the completion of the EP study, catheters were removed. Protamine 30 mg was given at the end of the procedure and ACT was checked repeatedly. The sheaths were removed and hemostasis achieved with Fig of 8 suture and manual compression
after acceptable ACT is achieved.
Left atrial Pressure:
Pre-Procedure: Mean LA pressure was 3mmHg
Post-Procedure: Mean LA pressure was 6mmHg
Post-Procedure: Mean RA pressure was 2mmHg
Estimated Blood loss:
<10 cc
Specimens Removed:
None.
Implants / Devices:
None
Urine output:
None
Packs / Drains/ Tubes:
None
Instrument / Sponge Count Correct:
Yes
Complications of the Procedure:
None
Condition of Patient at Time of Transfer:
Hemodynamically stable with no neurological or vascular compromise.
Summary:
��������� Successful atrial fibrillation ablation with circumferential bidirectional line of block at pulmonary venin antra (Pulmonary vein isolation), Posterior wall isolation.
Figures from the Procedure:
Figure 1: The electroanatomic mapping (EAM) of the left atrium with bipolar voltage (purple indicates normal electrical activity with red as no myocardial muscle electric activity indicating a line of block or scar.
--- NOTE | 2024-09-24 13:58 | CM ---
CM following for DC planning needs.
Plan is for Ablation today.
DC plan reviewed; plan is for home w/ Ximena VARGHESE.
Will cont. to follow.
[2024-09-24] MEDS: ANESTHETIC LOZENGE 1 LOZENGE PO (14:18)
[2024-09-24] MEDS: ELIQUIS 5 MG PO (20:20)
[2024-09-24] MEDS: ZETIA 10 MG PO (22:23)
[2024-09-24] MEDS: REFRESH EYE DROPS (PF) 1 DROPS BOTH EYES (22:24)
[2024-09-24] MEDS: LIPITOR 20 MG PO (22:24)
--- NOTE | 2024-09-25 00:04 | PTCARENOTE ---
Assumed care of the pt @ 1900. Pt is AAOx3 SR on the monitor VSS Rt groin dressing c/d/i. Pt ambulates to bathroom with stand by assist. Call ventura within reach.
[2024-09-25 02:47] VITALS: BP 135/59
[2024-09-25 03:01] VITALS: BMI 25.0
[2024-09-25] MEDS: TYLENOL 650 MG PO (03:05)
[2024-09-25 03:37] LABS: Hematocrit 36.5 % (37.0-47.0); Hemoglobin 12.1 g/dL (12.0-16.0); Mean Corp Hgb Conc. 33.2 g/dL (33.0-37.0); Mean Corpuscular Hgb 29.8 pg (27.0-31.0); Mean Corpuscular Volume 89.9 fL (81.0-99.0); Mean Platelet Volume 10.6 fL (7.4-10.4); Platelet Count 301 10^3/uL (130-400); Red Blood Cell Count 4.06 10^6/uL (4.20-5.40); Red Cell Dist. Width 12.9 % (11.5-14.5); White Blood Cell Count 8.4 10^3/uL (4.8-10.8)
[2024-09-25 04:02] LABS: Blood Urea Nitrogen 31 mg/dl (7-17); Calcium 8.7 mg/dl (8.4-10.2); Carbon Dioxide 28 mmol/L (22-30); Chloride 99 mmol/L (98-107); Estimated Creatinine Clearance 31 ml/min; Glucose 99 mg/dl (70-99); Magnesium 1.9 mg/dl (1.6-2.3); Potassium 4.1 mmol/L (3.5-5.1); Sodium 136 mmol/L (135-145); eGFR > 60.00
[2024-09-25 07:18] VITALS: BP 131/65
--- NOTE | 2024-09-25 08:03 | W.PN.CD ---
Today's Communication / Plan
-
- Continue Amiodarone. Digoxin stopped.
- Home regimen - Amiodarone 200 mg QD, Toprol 25 mg BID, Apixaban 5 mg twice daily, Lasix 20 mg QD, Zetia 10 mg QD and Lipitor 20 mg qhs, along with Farxiga 10 mg QD
- Follow up in 2 weeks at [facility]
Impression / Plan
-
Background: 79M with coronary artery disease (BMS to LAD, 2010), paroxysmal atrial fibrillation (on apixaban), PSVT, hypertension, dyslipidemia, and vasovagal syncope who presented to the emergency department chief complaint of shortness of breath
-> AF with RVR & acute HFpEF. Outpatient terrapin fisher: Dr. Menard
Persistent atrial fibrillation, with rapid ventricular response
-Difficult to control. Not able to send home with fast rates and hypotension.
-S/P DCCV 09/17 with recurrence of AF almost immediately.
-Failed Tikosyn (wide QT and NSVT), Amiodarone (ineffective), metoprolol and digoxin
-s/p AF ablation 09/24/24 - PVI and PWI - extensive scarring of the LA noted with severe dilation.
- Now in sinus rhythm - continue AMiodarone. Digoxin stopped.
- Home regimen - Amiodarone 200 mg QD, Toprl 25 mg BID
-Oral Anticoagulation: Apixaban 5 mg twice daily, she denies missed doses and denies abnormal bleeding,
-[id number]: Score at least 6 (Heart failure, HTN, age 75 or more, Vascular disease, female gender)
- Other meds-Lasix 20 mg QD, Zetia 10 mg QD and Lipitor 20 mg qhs, along with Farxiga 10 mg QD
Acute HFpEF
-EF 55-60%
-New, likely precipitated by fast AFib, but HF may have precipitated AFib....
-Current weight 46.8 kg, lowest documented
-LA pressure 6 mmHg. Was dry in AM.
-Now on oral Lasix 40mg daily
-Now on SGLT2-I (farxiga 10mg daily)
-Entresto pand eventual MRA as outpatient.
Coronary artery disease
-BMS to LAD in 2010, on apixaban for atrial fibrillation
-Stable without chest pain
-Nuc stress test normal 01/2024
Moderate mitral regurgitation with dense MAC
Aortic sclerosis w/o stenosis
Hypertension, follow with diuresis
PSVT, continue beta-nemesio
Hypercholesterolemia, continue simvastatin and Zetia, LDL well below goal
Echo 09/17/2024:
Normal biventricular size and systolic function without regional wall motion
abnormality.
Grade III diastolic dysfunction with elevated LA pressure (MV E/A 3.3).
Moderate mitral regurgitation with dense MAC.
Moderate aortic sclerosis without stenosis.
Mild to moderate tricuspid regurgitation.
Estimated PASP 43 mmHg.
NSR.
Pleural effusion noted.
Compared to prior study of 02/09/2024 grade III diastolic dysfunction and
pleural effusion are now noted. MR has increased from mild to moderate. PA
pressure has increased from 25-30 to 43 mmHg.
Val Nuc Stress 02/02/2024: Normal
Physical Exam
Vital Signs/Labs
Vital Signs
Temp Pulse Resp BP Pulse Ox
98.3 F 61 16 131/65 100
09/25/24 07:19 09/25/24 07:18 09/25/24 07:19 09/25/24 07:18 09/25/24 07:19
09/24/24 09/25/24 09/26/24
06:59 06:59 06:59
Actual Weight 46.811 kg 47 kg
09/25/24 03:17
09/25/24 03:17
Magnesium 1.9 mg/dl (1.6-2.3) 09/25/24 03:17
Triglycerides 68 mg/dl (10-149) 03/25/25 05:55
LDL Cholesterol, Calc 26 mg/dl 09/17/24 05:55
VLDL Cholesterol, Calc 13 mg/dl (0-30) 09/17/24 05:55
HDL Cholesterol 66 mg/dl 09/17/24 05:55
09/16/24
18:45
[id number] Pept 2180
Physical Exam
Constitutional: No acute distress and Comfortable
EENT: Anicteric and Moist mucous membranes
Cardiovascular: Rhythm & rate is regular, Pedal edema is absent and JVD pressure is normal
Respiratory: Respiratory effort normal and Lungs clear to auscul.
GI: Soft, Non tender and Normal bowel sounds
Neuro/Psych: Alert, Oriented and AO x 3
Other: Cath Site
Data Reviewed
-
Date of Service: September 25, 2024
Medical Decision Making: Reviewed Test Results, Test Interpretation and Review of Case with other Provider
EKG: Tracing Personally Visualized and interpreted
Labs: Labs Reviewed by me
Old Records: Reviewed
--- NOTE | 2024-09-25 08:10 | W.PN.HOSP.TC ---
Addendum entered and electronically signed by Mackenzie Mirza MD 09/25/24 13:52:
total time 38 min
Original Note:
Today's Communication/Plan
-
see A/P
DC after PT
Assessment / Plan
Assessment / Plan
A/P:
# Persistent atrial fibrillation:
Electrical cardioversion on 09/17 unsuccessful -> started on Tikosyn but failed too -> started amiodarone for antiarrhythmic (200 mg daily).
s/p ablation 09/24
Cont metoprolol succinate 25 mg twice a day
Off Dig, Started Amiodarone 200 mg daily
Cont Eliquis 5 mg p.o. twice a day
Appreciate cardiology input
# Acute diastolic congestive heart failure (pneumonia ruled out):
Changed IV diuretics to oral diuretics -> Lasix 40 mg p.o. daily
GDMT: started beta-nemesio Toprol-XL. Started SGLT2 inhibitor
Monitor ins and outs and daily weight
Cough medicines prn
echo: Normal biventricular size and systolic function without regional wall motion abnormality. Grade III diastolic dysfunction. Moderate mitral regurgitation. Pleural effusion noted. Compared to prior study of 02/09/2024 grade III diastolic
dysfunction and pleural effusion are now noted. MR has increased from mild to moderate. PA pressure has increased from 25-30 to 43 mmHg.
# Left shoulder pain, likely Musculoskeletal
# L chest wall pain
L shoulder XR showed degenerative changes. Soft tissue calcification adjacent to the head of the proximal left humerus which could represent calcific tendinitis and/or bursitis.
cont lidocaine cream to apply over L chest wall
# Hypokalemia:
# Hypomagnesemia:
Repleted and resolved
# Constipation:
Started bowel regimen
# CAD:
Continue Eliquis and Zetia and statin
# Rosacea:
Continue metronidazole cream and oral Doxy
# Hypertension:
Beta-blockers
# Hyperlipidemia:
Statin
# Mild elevation of LFTs, resolved
Due to passive venous congestion
DVT prophylaxis: Eliquis
CODE STATUS: DNR
Dispo: HH, pt declined SNF even if offered by PT
DW Card
Anticipated Discharge: Today
Subjective/Interval History
-
Date of Service: September 25, 2024
Objective Data
-
Labs:
Laboratory Results
09/25/24
03:17
WBC 8.4
Hgb 12.1
Hct 36.5 L
Plt Count 301
Sodium 136
Potassium 4.1
Chloride 99
Carbon Dioxide 28
BUN 31 H
Creatinine 0.9
Glucose 99
Calcium 8.7
Vital Signs:
Vital Signs
Temp Pulse Resp BP Pulse Ox
36.8 C 61 16 131/65 100
09/25/24 07:19 09/25/24 07:18 09/25/24 07:19 09/25/24 07:18 09/25/24 07:19
I&O
09/24/24 09/25/24 09/26/24
06:59 06:59 06:59
Intake Total 360 / 360 1300 / 1300
Balance 360 / 360 1300 / 1300
Review of Systems
-
History Source: Patient
All other systems: Reviewed and negative
Physical Exam
-
General: Well Developed, No Apparent Distress, Comfortable, Appears Chronically Ill and Other (frail); Negative Respiratory Distress
HEENT: Normocephalic, Atraumatic, Nose Appears Normal and Ears Appear Normal; Negative Oxygen
Respiratory: Clear to Auscultation and Non Labored Respirations; Negative Accessory Resp Muscle Use
Cardiac: Regular Rhythm and S1/S2
GI: Soft, Nontender, Nondistended and Normal Bowel Sounds
Skin: Warm and Dry
Neuro: Awake, Alert and Oriented
Psych: Calm and Intact Judgement/Insight
Data Reviewed
-
Medical Tests (Nuc Med, Echo etc): Report Reviewed by me (echo)
Labs: Labs Reviewed by me
[2024-09-25] MEDS: LASIX PO (08:18)
[2024-09-25] MEDS: COLACE PO (08:43)
[2024-09-25] MEDS: MIRALAX PO (08:43)
[2024-09-25] MEDS: SENOKOT PO (08:43)
[2024-09-25] MEDS: OSCAL 500 + D 500 MG PO (08:44)
[2024-09-25] MEDS: METHOCARBAMOL 500 MG PO (08:44)
[2024-09-25] MEDS: FARXIGA 10 MG PO (08:44)
[2024-09-25] MEDS: ELIQUIS 5 MG PO (08:44)
[2024-09-25] MEDS: PACERONE 200 MG PO (08:44)
[2024-09-25] MEDS: VITAMIN B-12 1000 MCG PO (08:44)
[2024-09-25 08:45] VITALS: BP 137/61
[2024-09-25] MEDS: TOPROL XL PO (08:45)
[2024-09-25] MEDS: LASIX 20 MG PO (08:45)
[2024-09-25 09:40] VITALS: BP 129/67
[2024-09-25 10:40] VITALS: BP 129/67; PULSE 66; O2SAT 100
--- NOTE | 2024-09-25 11:35 | PTCARENOTE ---
IV and tele removed. Discharge instructions reviewed w/ pt and verbalizes understanding. Belongings collected and sent home w/ pt. Escorted via WC and staff assist. D/c to home.
--- NOTE | 2024-09-25 12:01 | CM ---
CM following for DC planning needs.
Pt. for DC today; order noted.
Met w/ patient at bedside. She feels well and is anticipating to go home today, states that her son will transport her home.
Discussed plan for home-care through [employer], referral made/ accepted.
Pt. concerned that medication will not be in stock at local pharmacy; call to [facility] and confirmed that all prescribed medication are available to fill. Coupon for [facility] provided at time of DC.
Plan is for home w/ [employer]
--- NOTE | 2024-09-25 13:06 | W.DCSUMMARY ---
Discharge Summary
Discharge Data
Date of Admission: 09/16/24
Date of Discharge: 09/25/24
-
Pending Results: No
Hospital Course
Principal Diagnosis:
Persistent atrial fibrillation
Acute diastolic congestive heart failure
Chronic Diagnoses:�
Coronary artery disease
Rosacea on metronidazole cream and oral Doxy
Hypertension
Hyperlipidemia
Consultations:�
Cardiology
Procedures:�
Cardiac ablation 09/24/2024
Clinical course:�
This is a 79-year-old female, with past medical history as stated above, who presented with persistent atrial fibrillation.
Problem 1:
Persistent atrial fibrillation.
She underwent electrical cardioversion on 09/17 which was unsuccessful, this was followed by Tikosyn which failed too.
She underwent cardiac ablation on 09/24/2024, and was started with amiodarone 200 mg daily which she can continue going forward.
She can also continue with metoprolol succinate 25 mg twice a day.
She can also continue with Eliquis 5 mg twice daily.
She can follow-up with cardiology closely following discharge.
Problem 2:
Acute diastolic congestive heart failure (pneumonia ruled out).
She was treated with IV Lasix while in the hospital and this was later changed to oral Lasix.
She was discharged with oral Lasix 20 mg daily.
In addition to continuing Toprol as stated above, she was also started with Farxiga and can continue at 10 mg daily going forward.
Her echo showed: normal biventricular size and systolic function without regional wall motion abnormality. Grade III diastolic dysfunction. Moderate mitral regurgitation. Pleural effusion noted. Compared to prior study of 02/09/2024 grade III
diastolic dysfunction and pleural effusion are now noted. MR has increased from mild to moderate. PA pressure has increased from 25-30 to 43 mmHg.
As for the rest of her medical problems, they were stable during her hospital stay.
Discharge Plan
-
Patient Disposition: Home with Home Care
Discharge Diagnosis/Procedures: Persistent atrial fibrillation status post ablation 09/24
Condition: Fair
Diet: As tolerated, Low Sodium and Restrict fluids to 64 oz
Activity: As tolerated
Driving Restrictions: No driving for 24 hours
Instructions: *CBC Heart Failure Instructions
Stand Alone Forms: DC Instructions- Cath/EP Lab
Referrals:
[facility] [Outside] - in one to two days (FAX- [phone])
Emily Howe CRNP [Specified Professional Personl] - 10/02/24 9:20 am (Cardiology followup appointment)
Alley Sampson MD [Family Provider] - in less than 1 week
Kathy Forman MD [Active] - 10/23/24 9:00 am (ablation consult)
Additional Discharge Medication Instructions: Take Toprol 25 mg twice daily
We have added Lasix 20 mg daily
We have added amiodarone 200 mg daily
We have added Farxiga 10 mg daily
STOP HCTZ
Prescriptions:
New
dapagliflozin propanediol 10 mg Tablet
10 mg PO DAILY Qty: 30 0RF
furosemide 20 mg Tablet
20 mg PO DAILY Qty: 30 0RF
metoprolol succinate 25 mg Tablet Extended Release 24 Hr
25 mg PO BID Qty: 60 0RF
amiodarone 200 mg Tablet
200 mg PO DAILY Qty: 30 0RF
Continued
ketoconazole 2 % Shampoo
1 applic TOPICAL Q48H
chlorzoxazone 500 mg Tablet
500 mg PO DAILY
cyanocobalamin (vitamin B-12) 1,000 mcg Tablet
1,000 mcg PO DAILY
simvastatin 40 mg Tablet
40 mg PO HS
acetaminophen [Tylenol Arthritis Pain] 650 mg Tablet Extended Release
1,300 mg PO DAILY
acetaminophen [Tylenol Arthritis Pain] 650 mg Tablet Extended Release
650 mg PO HS
metronidazole 0.75 % Cream
1 applic TOPICAL BID
doxycycline hyclate 20 mg Tablet
20 mg PO Q48H
ezetimibe 10 mg Tablet
10 mg PO HS
Systane (PF) 0.4-0.3 % Dropperette
1 drp BOTH EYES HS
red yeast rice 600 mg Capsule
600 mg PO HS
biotin 5 mg Tablet
5 mg PO DAILY
calcium carbonate-vitamin D3 [Calcium 500 + D] 500 mg-10 mcg (400 unit) Tablet
1 tab PO DAILY
Prolia 60 mg/mL Syringe
60 mg SC [id number]
Eliquis 5 mg Tablet
5 mg PO BID
psyllium husk [Metamucil] 0.4 gram Capsule
2 g PO QPM
Discontinued
metoprolol succinate 25 mg Tablet Extended Release 24 Hr
25 mg PO DAILY
hydrochlorothiazide 12.5 mg Tablet
12.5 mg PO WE
Discharge Orders:
Discharge Patient (As Directed); Ordered 09/25/24
Ordered By: Mackenzie Mirza
Care Plan Goals
Care Plan Goals:
Problem: Readiness for enhanced knowledge related to diagnosis and treatment plan
Goal: Understand your diagnosis and treatment plan needs, including medications if applicable.
Instructions: Know your diagnosis, underlying causes and treatment plan options, including medications if applicable. Consult with your health care team to learn about your diagnosis and treatment plan, including medications if applicable.
Discharge Date and Time
Discharge Date/Time: 09/25/24 12:03
Print Language: FRISIAN
--- NOTE | 2024-09-27 09:36 | W.HF.CON ---
Heart Failure
- LV Function
Left ventricular function study result: LV Ejection fraction >/= 50%
Ejection Fraction Percentage: 55-60
- ARNI
Patient already on ARNI: No
Heart Failure ARNI Not Indicated: LV Ejection Fraction >/= 40%
- ACEI/ARB
Patient already on ACEI/ARB: No
Heart Failure ACEI/ARB Not Indicated: LV Ejection Fraction > 40%
- Beta Aline
Patient already on Evidence Based Beta Aline: Yes
- Mineralocorticord Receptor Antagonist
Patient already on MRA: No
Heart Failure MRA Not Indicated: LV Ejection Fraction > 40%
- SGLT-2 Inhibitor
Patient already on SGLT-2 Inhibitor: Yes
- Afib Anticoagulation
Patient already on Anticoagulation for Afib: Yes
- NYHA CHF Classification
NYHA CHF Classification Level: Class III - Symptoms w/ min exertion, interferes w/ nml daily activity
- ACC/AHA Stage
ACC/AHA Stage: Stage C: Symptomatic Heart Failure
== END 2024-09-25 12:03 | disposition home health service (06) | DRG 273 ==
LOC: IVU 20:23
PROVIDERS: Hospitalist; Internal Medicine Cardiovascular Disease; Nuclear Medicine Nuclear Cardiology; Nurse Practitioner; Nurse Practitioner Family; Registered Nurse; ADMITTING PHYSICIAN Hospitalist; ATTENDING PHYSICIAN Internal Medicine; EMERGENCY PHYSICIAN Emergency Medicine; FAMILY PHYSICIAN Family Medicine; OTHER PHYSICIAN Internal Medicine Cardiovascular Disease
PROC: 5A2204Z Restoration of Cardiac Rhythm, Single (ICD-10-PCS; 2024-09-17)
PROC: B245YZZ Ultrasonography of Left Heart using Other Contrast (ICD-10-PCS; 2024-09-24)
PROC: 02583ZZ Destruction of Conduction Mechanism, Percutaneous Approach (ICD-10-PCS; 2024-09-24)
PROC: 02K83ZZ Map Conduction Mechanism, Percutaneous Approach (ICD-10-PCS; 2024-09-24)
DX: I11.0 Hypertensive heart disease with heart failure (principal); I50.31 Acute diastolic (congestive) heart failure; I48.19 Other persistent atrial fibrillation; I47.20 Ventricular tachycardia, unspecified; I48.92 Unspecified atrial flutter; I25.10 Atherosclerotic heart disease of native coronary artery without angina pectoris; L71.9 Rosacea, unspecified; J30.9 Allergic rhinitis, unspecified; M81.0 Age-related osteoporosis without current pathological fracture; K76.1 Chronic passive congestion of liver; E78.00 Pure hypercholesterolemia, unspecified; I08.1 Rheumatic disorders of both mitral and tricuspid valves; I70.0 Atherosclerosis of aorta; M25.512 Pain in left shoulder; E87.6 Hypokalemia; E83.42 Hypomagnesemia; K59.00 Constipation, unspecified; Z66 Do not resuscitate; Z96.651 Presence of right artificial knee joint; Z82.41 Family history of sudden cardiac death; Z79.01 Long term (current) use of anticoagulants; Z88.0 Allergy status to penicillin; Z95.5 Presence of coronary angioplasty implant and graft
CPT/HCPCS: 71045; 73030; 80048; 80053; 80061; 82248; 83735; 83880; 84443; 84484; 85025; 85027; 85347; 87070; 92960; 93005; 93306; 93656; 93657; 96365; 96375; 96376; 97163; 99285; C1733; C1759; C1766; C1769; C1892; C1894; J1160

== ENCOUNTER 2025-02-11 11:20 | Emergency (ER) | payer MEDICARE, OTHER, SELFPAY ==
[2025-02-11 11:23] VITALS: BP 145/59
--- NOTE | 2025-02-11 11:37 | ED.GENMED ---
History of Present Illness
General
Chief Complaint: Fall
Source: patient
Exam Limitations: none
Time Seen by Provider: 02/11/25 11:28
History of Present Illness
History of Present Illness:
See MDM
Past History
Past History
ED Past Medical History: Arrthythmia, CAD, HTN and Hypercholesterolemia
ED Past Surgical History: Other (Dental)
Social History
Tobacco: Non-smoker
Alcohol: None
Phy Exam
Physical Exam
Physical Exam:
See MDM
Course
Orders/Labs/Results
Orders:
Orders
02/11/25 11:34
Electrocardiogram (*1) Urgent
Reason for Study: Syncope
CT Head W/o Iv Contrast Urgent
Comment:
Reason For Exam: fall, head injury
EKG- Treatment ONCE
0.9% Sodium Chloride 1000 ml [Nss] 1,000 ml IV BOLUS
Acetaminophen [Tylenol] 1,000 mg PO NOW STA
Diphenhydramine [Benadryl] 25 mg PO NOW STA
02/11/25 11:43
CPK [Creatine Phosphokinase] Urgent
Complete Blood Count/With Diff Urgent
Comprehensive Metabolic Panel Urgent
02/11/25 14:45
Cephalexin Monohydrate [Keflex] 500 mg PO NOW STA
Abnormal Lab Results
02/11/25
11:43
WBC 12.2 H 10^3/uL
(4.8-10.8)
MCH 31.7 H pg
(27.0-31.0)
MPV 10.5 H fL
(7.4-10.4)
Absolute Neuts (auto) 11.5 H 10^3/uL
(1.4-6.5)
Absolute Lymphs (auto) 0.3 L 10^3/uL
(1.2-3.4)
Neutrophils % 94.2 H %
(42.2-75.2)
Lymphocytes % 2.3 L %
(20.5-51.1)
Carbon Dioxide 31 H mmol/L
(22-30)
BUN 31 H mg/dl
(7-17)
Glucose 106 H mg/dl
(70-99)
02/11/25 11:43
02/11/25 11:43
Vital Signs
Initial and Last Documented VS:
Initial Vital Signs
Temp Pulse Resp BP Pulse Ox
98.2 F 63 18 145/59 100
02/11/25 11:23 02/11/25 11:23 02/11/25 11:23 02/11/25 11:23 02/11/25 11:23
Last Documented Vital Signs
Temp Pulse Resp BP Pulse Ox
98.2 F 57 26 135/52 100
02/11/25 11:23 02/11/25 12:00 02/11/25 12:00 02/11/25 12:00 02/11/25 11:40
MDM/Problems Addressed
Differential Diagnosis Includes:
Note:
CHIEF COMPLAINT(S)
Fall with subsequent weakness and hunger.
HISTORY OF PRESENT ILLNESS
The patient is a 79-year-old female who experienced a fall. She reports that she thought she got into bed but woke up on the floor, lying on her back. The onset of weakness and hunger follows the fall, as she has not eaten for some time. The patient
mentions that she had a dental procedure recently where a cyst was removed, and a plate was involved. She describes experiencing pain in the same location of a previous fall a year ago, but she is unsure if it is due to the recent procedure. The
patient unsure if she hit her head during the fall. She was administered an antibiotic she appears to have developed a rash from, possibly an allergy. She is allergic to clindamycin but can tolerate cephalexin, which she has taken before. She
refused pain medication but accepted Tylenol for pain management. She also reports feeling hungry as she has not eaten.
SOCIAL DETERMINANTS AFFECTING HEALTH
The patient reports a lack of food intake, indicating potential barriers to timely nutrition.
ALLERGIES
Clindamycin.
MEDICATIONS
Cephalexin (intended to start), acetaminophen (administered).
PHYSICAL EXAM
General: Alert, no acute distress.
Skin: Warm, dry. Urticarial rash to trunk
Head: Normocephalic, atraumatic
Neck: Appears supple, trachea midline.
Eyes, Ears, Nose, Mouth, and Throat: Mildly dry mucous membranes. No surrounding infectious changes from left upper molar removal
Cardiovascular: No signs of cyanosis
Respiratory: Respirations are non-labored.
Abdomen: Non-distended
Musculoskeletal: No deformities. Small abrasion to right anterior knee without bony tenderness
Neurological: No focal neurological deficit observed.
Psychiatric: Cooperative, appropriate mood and affect.
PROBLEM LIST
Acute Problems:
- Fall with subsequent weakness
- Rash likely due to antibiotic
PLAN
1. Administer fluids for hydration.
2. Conduct head imaging to ensure no trauma from the fall.
3. Initiate cephalexin for infection prevention, given the patients allergy to clindamycin.
4. Administer Tylenol for pain management.
5. Ensure nutritional support and monitor for improvement in weakness.
DIFFERENTIAL DIAGNOSIS
The Differential Diagnosis includes, in no particular order and is not limited to:
1. Dehydration
2. Orthostatic hypotension
3. Syncope
4. Infection
5. Drug-induced rash
6. Anemia
7. Frailty syndrome
8. Mild traumatic brain injury
9. Neuropathy
10. Electrolyte imbalance
My independent EKG interpretation is:
- Time of EKG: Not specified
- Rhythm: Sinus
- Heart Rate: 52 beats per minute
- ST Segment: No evidence of ST elevation
SUMMARY OF ENCOUNTER
The patient, a 79-year-old female, presented to the emergency department following a fall. She had weakness and hunger likely due to her recent lack of food intake. Initial management included providing IV fluids to address potential dehydration,
and she was allowed to rest. Her symptoms showed improvement, and pain was managed with acetaminophen. She developed a rash from clindamycin prescribed after a recent dental procedure where a cyst was removed, thus, cephalexin will be prescribed,
which she has tolerated before. A CT head scan was conducted, revealing no intracranial abnormality or trauma.
ASSESSMENT
The patients symptoms and lab results, including leukocytosis with a left shift, likely correlate with recent dental procedures and the allergic reaction to clindamycin. The fall appears not to have been caused by intracranial issues as the CT was
negative.
EMERGENCY TREATMENTS ADMINISTERED
Acetaminophen was administered for pain management. IV fluids were provided for hydration.
PLAN
Administer cephalexin for infection prophylaxis due to her allergy to clindamycin. Ensure nutritional support and monitor for improvement in weakness. The patient is advised on proper hydration and nutrition intake.
INDEPENDENT REVIEW OF LABS AND INTERPRETATION OF TESTS
My independent review of CBC indicates leukocytosis with a left shift.
My independent CT head interpretation is negative for any intracranial abnormality or trauma.
MEDICATION RECONCILIATION
Cephalexin prescribed to replace clindamycin due to an allergic reaction. Acetaminophen was administered during the visit for pain management.
MEDICAL DECISION MAKING
-Complexity of Data Reviewed: Chronic conditions affecting care include the previous fall and a recent dental procedure with cyst removal. Differential diagnosis considers dehydration, orthostatic hypotension, syncope, infection, drug-induced rash,
anemia, frailty syndrome, mild traumatic brain injury, neuropathy, and electrolyte imbalance.
-Data:
Category 1: Independent review of labs showed leukocytosis with left shift. Independent interpretation of CT head was negative for intracranial abnormalities or trauma.
Category 3: Discussion of management with primary care regarding cephalexin prescription due to clindamycin allergy.
-Risk: Prescription management involving cephalexin due to clindamycin allergy.
DIAGNOSIS
- Leukocytosis [D72.829]
- Rash due to drug allergy [L27.0]
- Acute pain [R52]
- Fall [R29.6]
*Pulse Oximetry
SaO2: 100
Oxygen Mode of Delivery: Room air
ED Attending Note
-
Portions of this chart may have been created with voice recognition software.� Occasional wrong word or��sound alike� substitutions may have occurred due to the inherent limitations of voice recognition software.
Discharge Plan
Departure
Patient Disposition: Home (Routine Discharge)
Date of Disposition: 02/11/25
Time of Disposition: 14:46
Patient with high blood pressure during this ER visit?: No
Discharge Problem:
Syncope, Adverse drug reaction
Instructions: Head Injury in Adults (DC)
Prescriptions:
New
cephalexin 500 mg capsule
500 mg PO BID 7 Days Qty: 14 0RF
No Action
ketoconazole 2 % Shampoo
1 applic TOPICAL Q48H
chlorzoxazone 500 mg Tablet
500 mg PO DAILY
cyanocobalamin (vitamin B-12) 1,000 mcg Tablet
1,000 mcg PO DAILY
simvastatin 40 mg Tablet
40 mg PO HS
acetaminophen [Tylenol Arthritis Pain] 650 mg Tablet Extended Release
1,300 mg PO DAILY
acetaminophen [Tylenol Arthritis Pain] 650 mg Tablet Extended Release
650 mg PO HS
metronidazole 0.75 % Cream
1 applic TOPICAL BID
doxycycline hyclate 20 mg Tablet
20 mg PO Q48H
ezetimibe 10 mg Tablet
10 mg PO HS
Systane (PF) 0.4-0.3 % Dropperette
1 drp BOTH EYES HS
red yeast rice 600 mg Capsule
600 mg PO HS
biotin 5 mg Tablet
5 mg PO DAILY
calcium carbonate-vitamin D3 [Calcium 500 + D] 500 mg-10 mcg (400 unit) Tablet
1 tab PO DAILY
Prolia 60 mg/mL Syringe
60 mg SC [id number]
Eliquis 5 mg Tablet
5 mg PO BID
psyllium husk [Metamucil] 0.4 gram Capsule
2 g PO QPM
dapagliflozin propanediol 10 mg Tablet
10 mg PO DAILY Qty: 30 0RF
furosemide 20 mg Tablet
20 mg PO DAILY Qty: 30 0RF
metoprolol succinate 25 mg Tablet Extended Release 24 Hr
25 mg PO BID Qty: 60 0RF
amiodarone 200 mg Tablet
200 mg PO DAILY Qty: 30 0RF
Referrals:
Alley Sampson MD [Family Provider, Family Practice]
Activity Restrictions/Additional Instructions:
Please return for any worsening symptoms.
You may return at any time if you have further concerns.
Please follow up with your doctor at the first available appointment, preferably this week.
Please stop taking the clindamycin. Instead, I wrote for cephalexin which you stated you have tolerated in the past.
Thank you for choosing [facility].
Interventions
Interventions:
*Risk Screen - Suicide Last Done: 02/11/25 11:23
*General Assessment Last Done: 02/11/25 11:23
*ED- Fall Risk Assessment Last Done: 02/11/25 11:49
*ED COVID-19 Vaccine History Last Done: 02/11/25 11:49
ED-Musculoskeletal Assessment Last Done: 02/11/25 11:49
ED- Neurological Assessment Last Done: 02/11/25 11:49
ED-Skin Assessment Last Done: 02/11/25 11:49
Discharge Date and Time
Print Language: HEBREW
[2025-02-11 11:41] VITALS: BP 130/51
[2025-02-11] MEDS: NSS 1000 IV (11:42)
[2025-02-11] MEDS: BENADRYL 25 MG PO (11:46)
[2025-02-11 11:48] LABS: Hematocrit 39.5 % (37.0-47.0); Hemoglobin 13.3 g/dL (12.0-16.0); Mean Corp Hgb Conc. 33.7 g/dL (33.0-37.0); Mean Corpuscular Volume 94.0 fL (81.0-99.0); Nucleated Red Blood Cells % 0 %; Platelet Count 195 10^3/uL (130-400); Red Cell Dist. Width 13.3 % (11.5-14.5)
[2025-02-11 12:00] VITALS: BP 135/52
[2025-02-11 12:11] LABS: ALT (SGPT) 25 U/L (0-35); AST (SGOT) 30 U/L (14-36); Albumin 4.6 g/dl (3.5-5.0); Alkaline Phosphatase 41 U/L (38-126); Blood Urea Nitrogen 31 mg/dl (7-17); Calcium 9.3 mg/dl (8.4-10.2); Carbon Dioxide 31 mmol/L (22-30); Chloride 101 mmol/L (98-107); Glucose 106 mg/dl (70-99); Potassium 3.6 mmol/L (3.5-5.1); Sodium 138 mmol/L (135-145); Total Protein 7.2 g/dl (6.3-8.2); eGFR > 60.00
[2025-02-11] MEDS: KEFLEX 500 MG PO (14:50)
[2025-02-11 16:10] VITALS: BP 132/58
== END 2025-02-11 16:11 | disposition home or self-care (01) ==
LOC: EMR 11:20
PROVIDERS: EMERGENCY PHYSICIAN Student in an Organized Health Care Education/Training Program; FAMILY PHYSICIAN Family Medicine
DX: R55 Syncope and collapse (principal); L27.0 Generalized skin eruption due to drugs and medicaments taken internally; T50.995A Adverse effect of other drugs, medicaments and biological substances, initial encounter; E78.00 Pure hypercholesterolemia, unspecified; I25.10 Atherosclerotic heart disease of native coronary artery without angina pectoris; Z88.1 Allergy status to other antibiotic agents
CPT/HCPCS: 96360; 96361; 99284; 70450; 80053; 82550; 85025; 93005

== ENCOUNTER → 2025-03-12 11:03 | Outpatient (REF) | payer MEDICARE, OTHER, SELFPAY | LOC: HWRCS 11:03 | PROVIDERS: ATTENDING PHYSICIAN Internal Medicine; FAMILY PHYSICIAN Family Medicine | DX: I25.10 Atherosclerotic heart disease of native coronary artery without angina pectoris (principal); I48.0 Paroxysmal atrial fibrillation; I50.32 Chronic diastolic (congestive) heart failure; Z79.899 Other long term (current) drug therapy | CPT/HCPCS: 93306 ==

== ENCOUNTER 2025-04-15 15:32 | Emergency (ER) | payer MEDICARE, OTHER, SELFPAY ==
[2025-04-15 15:35] VITALS: BP 144/60
[2025-04-15 16:57] VITALS: BP 155/69
[2025-04-15] MEDS: LET TOPICAL ANESTHETIC GEL 3 ML TOPICAL (17:40)
--- NOTE | 2025-04-15 19:09 | ED.MUSCINJ ---
HPI-Injury
General
Chief Complaint: Fall
Source: patient
Exam Limitations: none
Time Seen by Provider: 04/15/25 17:28
Nursing documentation reviewed up to this point in time: agreed with
History of Present Illness-Injury
Initial Injury comments:
79-year-old female from [facility] history of A-fib on Eliquis, HTN, HLD states she stumbled and fell walking outside of the her building, she injured her right fifth finger and lacerated the dorsum of her left hand during the fall. She has a
mild scrape on her chin otherwise she states she did not hit her head. She denies any other injury. She will check with her PCP tomorrow about her tetanus immunization as she feels it is up-to-date.
Past History
Past History
ED Past Medical History: Arrthythmia, CAD, HTN and Hypercholesterolemia
ED Past Surgical History: Other (Dental)
Social History
Tobacco: Non-smoker
Alcohol: None
Personal:
Living: assisted living
Review of Systems
Review of Systems
Allergies reviewed?: Yes
All Other Systems: ROS reviewed and negative except as documented in HPI and ROS
Musculoskeletal: Reports other (Pain right pinky finger, left hand dorsum); Denies neck pain or back pain
Skin: Reports other (Cut back of left hand)
Neurological: Denies dizzy, headache or weakness
Skin Exam
Laceration
Mid left hand dorsum:
Length in cm: 2
Orientation: L shaped
Type of Laceration: simple
Any active bleeding?: no active bleeding
Distal skin color and temperature: normal-warm & good color
Normal distal neurovascular exam: Yes
Range of motion: full
Phy Exam
Physical Exam
Physical Exam:
GENERAL: No acute distress. A&Ox3.
CONSTITUTIONAL: Afebrile.
EYES: clear, conjunctivae normal
ENMT: moist mucus membranes, Pharynx nl
RESPIRATORY: Regular respirations, nonlabored, lungs clear.
CARDIOVASCULAR: Regular rate and rhythm, no murmurs, no rubs.
GI: Soft, nontender, normal BS
MUSCULOSKELETAL: Moves with ease. Well perfused. Mild swelling and ecchymosis right fifth finger.
SKIN: Warm, dry, pink, laceration dorsum left hand.
PSYCH: Normal mood and affect. Well kept, interactive and appropriate
NEUROLOGIC: Awake, alert and oriented. No focal neurological deficits
Injury Course
Orders/Labs/Results
Orders:
Orders
04/15/25 17:36
Lidocaine/Epinephrine/Tetracai [Let Topical Anesthetic Gel] 3 ml TOPICAL NOW STA
04/15/25 18:38
CR Finger(s)/thumb Min 2 Vw Rt Urgent
Comment:
Reason For Exam: 5th finger pain after fall
Indicate Which Finger:: Little Finger
Hand, Left 3 View [CR Hand - Left Min 3 Views] Urgent
Comment:
Reason For Exam: pain after fall
Procedures
Laceration Closure
Mid dorsum left hand:
Status of Wound: appears infected
Size of Wound in cm: 2
Description of Wound Edges: sharp
Preparation: cleaned with saline
Anesthesia: Topical-LET
Revision/Debridement: routine- no revision
Type of Closure: Dermabond-skin glue (Skin is very thin. Wound edges well-approximated with wound glue. Reinforced with skin adhesive and Steri-Strips, nonstick and gauze wrap applied)
MDM/Problems Addressed
MDM/Problems Addressed:
79-year-old female from [facility] history of A-fib on Eliquis, HTN, HLD states she stumbled and fell walking outside of the her building, she injured her right fifth finger and lacerated the dorsum of her left hand during the fall. She has a
mild scrape on her chin otherwise she states she did not hit her head. She denies any other injury. She will check with her PCP tomorrow about her tetanus immunization as she feels it is up-to-date.
Wound edges well-approximated with wound glue. Skin is very thin. non stick and gauze dressing applied. Carloz wrap applied for extra protection, all by this examiner.
X-ray left hand reveals no fracture
X-ray right fifth finger reveals an avulsion fracture at the base of the distal phalanx. Aluminum helmet splint applied
*Pulse Oximetry
SaO2: 100
Oxygen Mode of Delivery: Room air
Patient hypoxic: not evaluated
*Critical Care Note
Total Time (30-74mins, 75-104mins- exclusive of procedures): Not Applicable
ED Attending Note
-
Portions of this chart may have been created with voice recognition software.� Occasional wrong word or��sound alike� substitutions may have occurred due to the inherent limitations of voice recognition software.
Discharge Plan
Departure
Patient Disposition: Home (Routine Discharge)
Date of Disposition: 04/15/25
Time of Disposition: 19:14
Patient with high blood pressure during this ER visit?: No
Condition: Good
Discharge Problem:
Fall from slip, trip, or stumble, Laceration of left hand, Fracture of finger, Abrasion of chin
Instructions: Laceration Repair With Glue (DC), Skin Abrasions (DC), Finger Fracture ED
Prescriptions:
No Action
ketoconazole 2 % Shampoo
1 applic TOPICAL Q48H
chlorzoxazone 500 mg Tablet
500 mg PO DAILY
cyanocobalamin (vitamin B-12) 1,000 mcg Tablet
1,000 mcg PO DAILY
simvastatin 40 mg Tablet
40 mg PO HS
acetaminophen [Tylenol Arthritis Pain] 650 mg Tablet Extended Release
1,300 mg PO DAILY
acetaminophen [Tylenol Arthritis Pain] 650 mg Tablet Extended Release
650 mg PO HS
metronidazole 0.75 % Cream
1 applic TOPICAL BID
doxycycline hyclate 20 mg Tablet
20 mg PO Q48H
ezetimibe 10 mg Tablet
10 mg PO HS
Systane (PF) 0.4-0.3 % Dropperette
1 drp BOTH EYES HS
red yeast rice 600 mg Capsule
600 mg PO HS
biotin 5 mg Tablet
5 mg PO DAILY
calcium carbonate-vitamin D3 [Calcium 500 + D] 500 mg-10 mcg (400 unit) Tablet
1 tab PO DAILY
Prolia 60 mg/mL Syringe
60 mg SC [id number]
Eliquis 5 mg Tablet
5 mg PO BID
psyllium husk [Metamucil] 0.4 gram Capsule
2 g PO QPM
dapagliflozin propanediol 10 mg Tablet
10 mg PO DAILY Qty: 30 0RF
furosemide 20 mg Tablet
20 mg PO DAILY Qty: 30 0RF
metoprolol succinate 25 mg Tablet Extended Release 24 Hr
25 mg PO BID Qty: 60 0RF
amiodarone 200 mg Tablet
200 mg PO DAILY Qty: 30 0RF
cephalexin 500 mg capsule
500 mg PO BID 7 Days Qty: 14 0RF
Referrals:
Casimiro Aparicio MD [Active, Orthopedics] - Call in 1-3 days for appt
Alley Sampson MD [Family Provider, Family Practice] - Follow up in 2-3 days
Activity Restrictions/Additional Instructions:
As we discussed, see your doctor for a wound check and a dressing change in 2 to 3 days. Keep the dressing on until then.
When you have a dressing change, you can simply cover the area with a large Band-Aid, allow the strips to fall off by themselves.
Keep the Band-Aid on when showering or bathing, you may briefly wet the area in the shower or bath. Then remove the Band-Aid, allow the strips to dry and replace Band-Aid.
Seek medical care immediately for signs of infection which may include increasing redness, swelling, pain, pus drainage, red streak up the arm or fever.
Check with your doctor to make sure your tetanus immunization is up-to-date.
I gave you the name of an orthopedic doctor to follow-up with if needed. Discussed with your doctor whether you need to see the orthopedic doctor or not. Wear the finger splint until further instructed by your doctor or the orthopedic doctor.
Interventions
Interventions:
*Risk Screen - Suicide Last Done: 04/15/25 15:38
*General Assessment Last Done: 04/15/25 16:57
*Neglect/Abuse Screening Last Done: 04/15/25 15:38
*ED- Fall Risk Assessment Last Done: 04/15/25 16:57
*ED COVID-19 Vaccine History Last Done: 04/15/25 16:57
*ED Influenza Vaccine History Last Done: 04/15/25 16:57
*Nursing Disposition Last Done: 04/15/25 19:32
ED-Musculoskeletal Assessment Last Done: 04/15/25 16:57
ED- Neurological Assessment Last Done: 04/15/25 16:57
ED-Skin Assessment Last Done: 04/15/25 16:57
Discharge Date and Time
Discharge Date/Time: 04/15/25 19:32
Print Language: [id number]
== END 2025-04-15 19:32 | disposition home or self-care (01) ==
LOC: EMR 15:32
PROVIDERS: EMERGENCY PHYSICIAN Emergency Medicine; FAMILY PHYSICIAN Family Medicine
DX: S61.412A Laceration without foreign body of left hand, initial encounter (principal); S62.617A Displaced fracture of proximal phalanx of left little finger, initial encounter for closed fracture; S00.81XA Abrasion of other part of head, initial encounter; W01.0XXA Fall on same level from slipping, tripping and stumbling without subsequent striking against object, initial encounter; E78.00 Pure hypercholesterolemia, unspecified; I10 Essential (primary) hypertension; I25.10 Atherosclerotic heart disease of native coronary artery without angina pectoris; I48.91 Unspecified atrial fibrillation; Z79.01 Long term (current) use of anticoagulants
CPT/HCPCS: 12001; 29130; 99283; 73130; 73140

== ENCOUNTER → 2025-05-02 15:11 | Outpatient (REF) | payer MEDICARE, OTHER, SELFPAY | LOC: RAD 15:11 | PROVIDERS: ATTENDING PHYSICIAN Internal Medicine Cardiovascular Disease; FAMILY PHYSICIAN Family Medicine | DX: Z91.81 History of falling (principal) | CPT/HCPCS: 75572; Q9967 ==

== ENCOUNTER 2025-06-16 06:26 | Day surgery (SDC) | payer MEDICARE, OTHER, SELFPAY | END 2025-06-16 12:01 | disposition home or self-care (01) | LOC: GI 06:26 | PROVIDERS: ATTENDING PHYSICIAN Internal Medicine Gastroenterology; FAMILY PHYSICIAN Family Medicine | DX: R13.10 Dysphagia, unspecified (principal); R93.3 Abnormal findings on diagnostic imaging of other parts of digestive tract; K31.89 Other diseases of stomach and duodenum; K29.50 Unspecified chronic gastritis without bleeding | CPT/HCPCS: 43239; 88305; 88341; 88342 ==

== ENCOUNTER 2025-06-24 05:59 | Inpatient (IN) | payer MEDICARE, OTHER, SELFPAY ==
[2025-06-12 10:34] VITALS: BMI 21.3
[2025-06-12 10:56] LABS: Hematocrit 40.0 % (37.0-47.0); Hemoglobin 13.2 g/dL (12.0-16.0); Mean Corp Hgb Conc. 33.0 g/dL (33.0-37.0); Mean Corpuscular Volume 93.2 fL (81.0-99.0); Nucleated Red Blood Cells % 0 %; Platelet Count 224 10^3/uL (130-400); Red Cell Dist. Width 12.6 % (11.5-14.5)
[2025-06-12 11:04] LABS: INR 1.08; PT 13.8 Sec (11.4-14.6)
[2025-06-12 11:41] LABS: ALT (SGPT) 28 U/L (0-35); AST (SGOT) 39 U/L (14-36); Albumin 4.8 g/dl (3.5-5.0); Alkaline Phosphatase 54 U/L (38-126); Calcium 9.1 mg/dl (8.4-10.2); Carbon Dioxide 31 mmol/L (22-30); Chloride 95 mmol/L (98-107); Estimated Creatinine Clearance 24 ml/min; Glucose 81 mg/dl (70-99); Potassium 4.1 mmol/L (3.5-5.1); Sodium 136 mmol/L (135-145); Total Protein 7.6 g/dl (6.3-8.2); eGFR 57.31
[2025-06-12 12:03] LABS: Blood Urea Nitrogen 25 mg/dl (7-17)
[2025-06-24] VITALS (11 sets, daily range): BP systolic 114–153; BP diastolic 48–70
--- NOTE | 2025-06-24 09:07 | WATCHMAN.MD ---
Watchman Implant
-
Watchman LIZ occlusion device implantation:
Ms. Sanchez is a 80 yrs old woman with history of CAD status post BMS to LAD 2010, persistent atrial fibrillation s/p A-fib ablation on 09/24/2024, on Eliquis, PSVT, hypertension, dyslipidemia, and vasovagal syncope history with frequent falls with
high risk of bleeding and advised to stop anticoagulation therapy is here for Watchman implantation.
[id number] score is 6 (age, gender, hypertension, CAD, CHF)
HAS-BLED score is 4 (hypertension, prior bleeding, age, and anticoagulant)
Date of Procedure:
06/24/25
Indications:
Recurrent falls and bleeding with anticoagulation therapy for stroke prevention
Pre-Operative Diagnosis:
Atrial fibrillation with recurrent falls and bleeding
Post-Operative Diagnosis:
Atrial fibrillation with recurrent falls and bleeding
Procedure Performed:
Left atrial appendage occlusion with Watchman implantation (24 mm Watchman FLX Pro left atrial appendage closure device)
Performing Physicians:
ESPINOZA: Benjy Drake MD
Transseptal dumping machine operator: Sukumar Wolfe MD
Implanter: Kathy Forman MD.
Anesthesia:
See anesthesia records
Detailed Description of the Procedure:
Written informed consent was obtained from the patient after a full explanation of the risks and benefits of the procedure including the risks of sedation and anesthesia.
The patient was brought to the electrophysiology laboratory in stable condition in fasting state. Continuous electrocardiographic and hemodynamic monitoring was initiated.
The initial rhythm was atrial fibrillation.
The procedure site was meticulously prepared with surgical scrub and allowed to dry with no pooling. Sterile draping was applied to cover the procedure site. The image intensifier was draped with sterile bag and positioned over the patient. After
infusion of local anesthetic, vascular access was obtained under ultrasound guidance and sheaths were placed over guide wire as detailed below.
Sheath and Catheter Placement:
In the right femoral vein, an 8-Danish sheath was placed for Watchman placement procedure.
Sheaths:
Watchman delivery sheath upgraded from 8Fr sheath.
Catheters:
Watchman catheter
Trans-esophageal Echocardiography:
No thrombus noted in the left atrium or left atrial appendage. The LIZ was imaged and the dimensions were confirmed. Please see separate report for that.
Trans-septal Puncture:
Heparin was initiated and infused to maintain appropriate ACT.
A VersaCross RF pigtail guidewire was advanced through the 8-Danish sheath in the right femoral vein into the superior vena cava under fluoroscopic, ESPINOZA guidance. The 8Fr was upgraded the Watchman sheath and was advanced into the superior vena cava
over the guide wire. A transseptal VersaCross RF pigtail via Faradrive connect system was utilized to perform the trans-septal puncture. The apparatus was withdrawn until it was in contact with the fossa ovalis. The position was adjusted based on
fluoroscopy and ultrasound images from ESPINOZA. Under fluoroscopic, hemodynamic and ESPINOZA ultrasound guidance, left atrium was cannulated by applying the radiofrequency energy. The right atrial and left atrial pressure was monitored. A guide wire was
placed and was advanced into the left superior pulmonary vein. Both the sheath and the dilator was advanced into the left atrium. The dilator was withdrawn. Blood was aspirated from the sheath and arterial blood confirmed. The sheath was flushed.
Saline injection noted into the left atrium on ESPINOZA. The LA pressure was recorded. The saline injection was noted in the LA on the ESPINOZA. A curved pig tail was advanced over the guide wire into the left atrium and the wire was removed.
Left atrial appendage atriography:
The pigtail was advanced into the LIZ and was confirmed on fluoroscopy and ESPINOZA. The contrast was injected and the LIZ shape was recorded in GRAVES /Caudal view (21/25 degrees). The size of the LIZ was again checked and confirmed reviewing the ESPINOZA and
the fluoroscopy along with previously obtained ESPINOZA images.
Watchman Deployment:
The Watchman delivery sheath was advanced into the LIZ over the pigtail till the right marker was at the location of the orifice line marked on the screen. The pigtail was removed and the Watchman delivery system was advanced through the sheath into
the LIZ till it was aligned with the outer sheath marker inside the LIZ. The watchman sheath was clicked with the outer sheath. Once acceptable location achieved, the outer sheath was pulled back keeping the device steady at the LIZ location till a
ball of the device was formed under fluoroscopic guidance. The whole system was advanced further into the LIZ till adequate depth is achieved into the LIZ. The LIZ occluder was deployed and expanded adequately anchoring to the LIZ. The device was
kept anchored with stable pressure to that location for 10 seconds.
The watchman needed to be recaptured and adjusted and was redeployed till the adequate expansion and occlusion of the LIZ noted. There was significant shoulder noted though the nitinol fabric was covered. The device was captured multiple times to
place deeper in the LIZ but shoulder could not be avoided.
The ESPINOZA image confirmed adequate expansion. The tug test was done that showed the device is anchored well and is not able to come out. The compression was 19% and 22% on the three sides. There was no significant leak noted on the Doppler via ESPINOZA. A
cotrast injection showed no leak.
The device was deployed by unscrewing the Watchman device and releasing from the connecting wire. The wire was pulled back into the sheath and the sheath was pulled out of the LA.
Implanted device:
WATCHMAN FLX Pro � 24mm
Procedure End
ESPINOZA study was done again that showed no epicardial accumulation that was unchanged from earlier. A repeated images showed no change in the pericardial space. No complications noted.
Following the completion of the deployment, catheters were removed. Protamine 40 mg was given at the end of the procedure and ACT was checked repeatedly. The sheath was removed and hemostasis achieved with Fig of 8 suture and manual compression
after acceptable ACT is achieved.
Left atrial Pressure:
Mean LA pressure was 15mmHg
(start of the case before saline infusion was 5 mmHg)
Estimated Blood loss:
10 cc
Specimens Removed:
None.
Implants / Devices:
None
Urine output:
None
Packs / Drains/ Tubes:
None
Instrument / Sponge Count Correct:
Yes
Complications of the Procedure:
None
Condition of Patient at Time of Transfer:
Hemodynamically stable with no neurological or vascular compromise.
Summary:
Successful implantation of the left atrial occlusion device (WATCHMAN FLX Pro� 24mm)
Post procedure Plan for anticoagulation:
Continue Eliquis 5 mg BID for 3 months.
In 3 months, based on ESPINOZA, will plan to discontinue Eliquis and start ASA 81 mg indefinitely.
[2025-06-24 11:40] LABS: ACT-LR - POC > 397 Seconds (116-155)
[2025-06-24] MEDS: ANESTHETIC LOZENGE 1 LOZENGE PO (12:01)
--- NOTE | 2025-06-24 14:51 | ITS.CL.PN ---
Tutoring Assistant - Procedure Note
Procedure
Procedure Note:
WATCHMAN LEFT ATRIAL APPENDAGE OCCLUSION REPORT
Date of Procedure: 06/24/2025
Referring: Dr. Marin Menard MD, PhD
Indication: atrial fibrillation with high bleeding risk and high stroke risk
Operators: Sukumar Wolfe MD, PhD (interventional cardiology); Dr. Kathy Forman MD (electrophysiology); Dr. Surjit Drake MD (cardiac imaging)
Anesthesia: general anesthesia provided by the anesthesia staff
PROCEDURE: left atrial appendage occlusion with a 24 mm Watchman FLX
ACCESS:
1. 14F right common femoral vein (closure: figure of eight stitch) - Ultrasound was utilized for vascular access. The vessel was visualized under ultrasound and noted to be patent. An image of the vessel was stored permanently in the patient's
medical record. Under direct ultrasound guidance, vascular access was obtained using a modified Seldinger technique and a 8 Tristanian sheath was placed.
HEMODYNAMIC DATA
LA 15 mmHg
PROCEDURE NARRATIVE:
The patient was intubated and sedated by anesthesiology and then prepped and draped in standard sterile fashion. A ESPINOZA probe was placed by cardiology and imaging performed demonstrating no left atrial appendage thrombus and no pericardial effusion.
Under ultrasound guidance, the right femoral vein was accessed by Dr. Sukumar Wolfe with an 8F sheath placed. Heparin was administered to achieve ACT>300.
The 8F sheath was exchanged over a [employer] RF wire for the Watchman double curve sheath which was advanced to the SVC. The Watchman sheath was then pulled back under fluoroscopic and echo guidance until an appropriate inferior and posterior position
on the septum was achieved. During brief RF application, the wire was advanced through the interatrial septum into the left atrium. The wire was placed in the left upper pulmonary vein as confirmed by fluoroscopy and ESPINOZA. The dilator and sheath
easily tracked across the septum allowing placement of the sheath in the left atrium. Left atrial pressure was measured at 5 mmHg. 250 cc fluids were given and repeat LA pressure was 15 mmHg.
A 5F pigtail catheter was advanced through the sheath and placed in the left atrial appendage, and an appendage gram was performed demonstrating anatomy suitable for a 24 mm Watchman FLX device. The device was prepped on the back table, the pigtail
catheter removed, and the device delivered via the sheath to the left atrial appendage by Dr. Kathy Forman. The device was deployed slowly under continuous fluoroscopic and ESPINOZA visualization. The device needed to be recaptured and adjusted and was
redeployed until adequate expansion and occlusion of the LIZ was noted. There was significant mitral shoulder noted though the shoulder appeared to be well covered by fabric without leak. The device was captured multiple times to minimize this
shoulder as much as possible. After deployment, ESPINOZA imaging was performed to assess PASS criteria. The device demonstrated excellent positioning, anchor stability on tug test, appropriate sizing with 19-22% compression, and appropriate seal with no
leak at 0, 45, 90, or 135 degrees. Given PASS criteria were met, the device was then released.
The delivery system retracted back into the sheath and removed from the body. The sheath was retracted into the right atrium with ESPINOZA demonstrating no significant R-L shunt or pericardial effusion. The sheath was removed and the venotomy closed with
[id number] knot. Protamine 40 mg was given. The patient was extubated and tolerated the procedure well.
CONCLUSIONS
1. transseptal puncture with ESPINOZA guidance
2. successful deployment of a 24 mm Watchman FLX device under fluoroscopic and ESPINOZA guidance
RECOMMENDATIONS:
1. anticoagulation with Eliquis 5 mg BID
2. repeat ESPINOZA in 3 months
Copy to: Dr. Marin Menard MD, PhD (dispatch clerk); Dr. Alley Sampson MD (PCP)
Signed: Sukumar Wolfe MD, PhD
== END 2025-06-24 14:07 | disposition home or self-care (01) | DRG 274 ==
LOC: CATH-IN 05:59
PROVIDERS: Internal Medicine Cardiovascular Disease; Student in an Organized Health Care Education/Training Program; ADMITTING PHYSICIAN Internal Medicine Cardiovascular Disease; FAMILY PHYSICIAN Family Medicine
PROC: 02L73DK Occlusion of Left Atrial Appendage with Intraluminal Device, Percutaneous Approach (ICD-10-PCS; 2025-06-24)
PROC: B246ZZ4 Ultrasonography of Right and Left Heart, Transesophageal (ICD-10-PCS; 2025-06-24)
DX: I48.19 Other persistent atrial fibrillation (principal); Z00.6 Encounter for examination for normal comparison and control in clinical research program; I50.32 Chronic diastolic (congestive) heart failure; I48.92 Unspecified atrial flutter; R55 Syncope and collapse; I47.10 Supraventricular tachycardia, unspecified; I11.0 Hypertensive heart disease with heart failure; E78.5 Hyperlipidemia, unspecified; I25.10 Atherosclerotic heart disease of native coronary artery without angina pectoris; K44.9 Diaphragmatic hernia without obstruction or gangrene; K59.09 Other constipation; L71.9 Rosacea, unspecified; R73.01 Impaired fasting glucose; R74.01 Elevation of levels of liver transaminase levels; M19.90 Unspecified osteoarthritis, unspecified site; R29.6 Repeated falls; R13.10 Dysphagia, unspecified; M81.0 Age-related osteoporosis without current pathological fracture; Z96.653 Presence of artificial knee joint, bilateral; Z91.81 History of falling; Z95.5 Presence of coronary angioplasty implant and graft; Z86.0109 Personal history of other colon polyps; Z87.11 Personal history of peptic ulcer disease; Z85.828 Personal history of other malignant neoplasm of skin; Z79.84 Long term (current) use of oral hypoglycemic drugs; Z79.01 Long term (current) use of anticoagulants; Z88.1 Allergy status to other antibiotic agents; Z88.0 Allergy status to penicillin; Z88.8 Allergy status to other drugs, medicaments and biological substances; Z91.048 Other nonmedicinal substance allergy status
CPT/HCPCS: 33340; 36415; 80053; 85025; 85347; 85610; 86850; 86900; 86901; 93005; 93355; C1769; C1894; Q9967